=== PATIENT | female | born 1955 | race Hispanic/Latino ===

== ENCOUNTER 2019-01-12 11:22 | Emergency (ER) | payer MEDICARE, MEDICAID ==
[2019-01-12 11:30] VITALS: BMI 46.5
--- NOTE | 2019-01-12 12:32 | ED PDOC ---
HPI: Wound Care - HPI Time Seen by Provider: 01/12/19 12:24 Chief Complaint (Nursing): Wound Check History Per: Patient Onset/Duration Of Symptoms: Days (5) Current Symptoms Are (Timing): Still Present Quality Of Symptoms: Swollen, Draining Additional Complaint(s): referred by PMD, pt is s/p craniotomy 1 month ago and has been at rehab since surgery. Staff at rehab have noticed drainage from surgical wound. Pt denies fever or pain. Past Medical History Vital Signs: Last Vital Signs Temp 98.2 F 01/12/19 11:27 Pulse 94 H 01/12/19 11:27 Resp 19 01/12/19 11:27 BP 120/82 01/12/19 11:27 Pulse Ox 96 01/12/19 11:27 - Medical History PMH: Denies: Depression, Chronic Kidney Disease - Surgical History Other surgeries: s/p craniotomy - Family History Family History: States: Unknown Family Hx - Home Medications Home Medications: Ambulatory Orders Medication Instructions Recorded Spironolactone 75 mg PO BID 06/30/12 Lansoprazole [Prevacid] 30 mg PO DAILY #14 ecc 04/30/14 Morphine Sulfate [Ms Contin] 30 mg PO BID 04/30/14 Oxycodone Hydrochloride [Oxycodone] 10 mg PO Q6 04/30/14 - Allergies Allergies/Adverse Reactions: Allergies Allergy/AdvReac Type Severity Reaction Status Date / Time No Known Allergies Allergy Verified 06/30/12 07:52 Review of Systems ROS Statement: Except As Marked, All Systems Reviewed And Found Negative Constitutional: Negative for: Fever, Chills Physical Exam - Physical Exam Head Exam: Negative for: NORMAL INSPECTION (Scalp occipitoparietal area. Surgical wound appears to be intact with some crusting along border of wound. Noerythema, swelling or drainage noted.) Skin: Positive for: Normal Color, Warm, DRY - ECG O2 Sat by Pulse Oximetry: 96 Disposition - Clinical Impression Clinical Impression: Encounter for postoperative wound check - Patient ED Disposition Is Patient to be Admitted: No - Disposition Referrals: [facility] [Outside] Disposition: Routine/Home Disposition Time: 13:08 Condition: FAIR Instructions: Surgical Wound (DC) Forms: [employer] ([place])
[2019-01-12 13:19] VITALS: BP 122/76; PULSE 72; RESP 17; TEMP 97.9; O2SAT 98
== END 2019-01-12 13:17 | disposition home or self-care (01) ==
LOC: H.ER 11:22
DX: Z98.890 Other specified postprocedural states (principal)

== ENCOUNTER 2019-01-22 19:54 | Inpatient (IN) | payer MEDICARE, MEDICAID ==
[2019-01-22 19:54] VITALS: BMI 46.5
[2019-01-22] MEDS ORDERED: Piperacillin/Tazobact 3.375 GM in Sodium Chloride 0.9% 100 ML IV STA (21:15)
[2019-01-22] MEDS ORDERED: Vancomycin 1 GM in Sodium Chloride 0.9% 100 ML IVPB STA (21:15)
[2019-01-22] MEDS ORDERED: Piperacillin/Tazobact 3.375 gm Inj IVPB ONE (21:21)
[2019-01-22 21:50] LABS: PROTHROMBIN TIME 11.7 Seconds (9.8-13.1)
[2019-01-22 21:53] LABS: PARTIAL THROMBOPLASTIN TIME 32.4 Seconds (25.6-37.1)
[2019-01-22 21:55] LABS: ALB/GLOB RATIO 1.2 (1.0-2.1); ALBUMIN 4.1 g/dL (3.5-5.0); BLOOD UREA NITROGEN 15 mg/dl (7-17); CALCIUM 9.4 mg/dL (8.4-10.2); GFR NON-AFRICAN AMERICAN > 60
[2019-01-22 21:56] LABS: ALT/SGPT 19 U/L (9-52); AST/SGOT 29 U/L (14-36); BASO % 0.4 % (0.0-2.0); EOS # 0.1 K/uL (0.0-0.7); EOS % 1.1 % (0.0-4.0); HEMOGLOBIN 12.6 g/dL (12.0-16.0); LYMPH # 3.1 K/uL (1.0-4.3); LYMPH % 27.6 % (20.0-40.0); MEAN CELL VOLUME 93.1 fl (81.0-99.0); MEAN CORPUSCULAR HEMOGLOBIN 30.1 pg (27.0-31.0); MEAN CORPUSCULAR HGB CONC 32.3 g/dL (33.0-37.0); MEAN PLATELET VOLUME 8.2 fl (7.2-11.7); MONO # 0.6 K/uL (0.0-0.8); MONO % 5.4 % (0.0-10.0); NEUT # 7.5 K/uL (1.8-7.0); NEUT % 65.5 % (50.0-75.0); NRBC % 0.1 % (0.0-0.0); RBC 4.18 Mil/uL (3.80-5.20); RED CELL DISTRIBUTION WIDTH 17.1 % (11.5-14.5); WHITE BLOOD COUNT 11.4 K/uL (4.8-10.8)
--- NOTE | 2019-01-22 22:00 | ED PDOC ---
HPI: Wound Care - HPI Time Seen by Provider: 01/22/19 20:46 Chief Complaint (Nursing): Wound Check Chief Complaint (Provider): Wound Check History Per: Patient History Of Present Illness: 63 year old female with a history of a brain hemangioma presents to the ED for post op wound infection. Patients hemangioma was resected and remove [address] Lance at [facility]. Since then, patient has been at the rehab facility at [facility]. A week ago she developed some drainage from the craniotomy and was started on Keflex. Wound had improved but over the course of the past two days, it has developed purulent drainage. Today, her physiotherapist came to her home and noticed copious drainage from craniotomy. Physiotherapist called Dr. Lance who advised patient to come to the ED for workup, admission, IV antibiotics and OR washout of the wound. Patient denies pain to the site or associated fever or chills. PMD: Iam Harrell MD Exam Limitations: no limitations Current Symptoms Are (Timing): Still Present Past Medical History Reviewed: Historical Data, Nursing Documentation, Vital Signs Vital Signs: Last Vital Signs Temp 97.8 F 01/22/19 20:26 Pulse 88 01/22/19 20:26 Resp 17 01/22/19 20:26 BP 153/86 H 01/22/19 20:26 Pulse Ox 98 01/22/19 20:26 Primary Care Provider: Iam Harrell MD - Medical History PMH: Arthritis Denies: Depression, Chronic Kidney Disease Other PMH: brain hemangioma - Surgical History Other surgeries: knee surgery and craniotomy - Family History Family History: States: Unknown Family Hx - Home Medications Home Medications: Ambulatory Orders Medication Instructions Recorded Brexpiprazole [Rexulti] 1 mg PO DAILY 01/22/19 Bupropion HCl [Wellbutrin XL] 300 mg PO DAILY 01/22/19 Gabapentin [Neurontin] 300 mg PO DAILY 01/22/19 Sertraline [Zoloft] 100 mg PO DAILY 01/22/19 levETIRAcetam [Keppra] 500 mg PO BID 01/22/19 - Allergies Allergies/Adverse Reactions: Allergies Allergy/AdvReac Type Severity Reaction Status Date / Time No Known Allergies Allergy Verified 01/22/19 20:32 Review of Systems ROS Statement: Except As Marked, All Systems Reviewed And Found Negative Skin: Positive for: Other (purulent drainage noted to craniotomy ) Physical Exam - Reviewed Nursing Documentation Reviewed: Yes Vital Signs Reviewed: Yes - Physical Exam Appears: Positive for: Non-toxic, No Acute Distress Skin: Positive for: Normal Color, Warm, Dry Eye Exam: Positive for: EOMI, Normal appearance, PERRL Neck: Positive for: Normal Cardiovascular/Chest: Positive for: Regular Rate, Rhythm. Negative for: Murmur Respiratory: Positive for: Normal Breath Sounds. Negative for: Respiratory Distress Gastrointestinal/Abdominal: Positive for: Normal Exam, Soft. Negative for: Ten derness Back: Positive for: Normal Inspection Extremity: Positive for: Normal ROM (upper and lower). Negative for: Pedal Edema, Deformity Neurological/Psych: Positive for: Awake, Alert, Oriented (x3). Negative for: Motor/Sensory Deficits Comments: HEAD: purulent drainage noticed to the craniotomy - Laboratory Results Result Diagrams: 01/22/19 21:41 01/22/19 21:41 Lab Results: PT 11.7 Seconds (9.8-13.1) 01/22/19 21:41 INR 1.0 01/22/19 21:41 APTT 32.4 Seconds (25.6-37.1) 01/22/19 21:41 Total Bilirubin 0.5 mg/dl (0.2-1.3) 01/22/19 21:41 AST 29 U/L (14-36) 01/22/19 21:41 ALT 19 U/L (9-52) 01/22/19 21:41 Alkaline Phosphatase 73 U/L (38-126) 01/22/19 21:41 Total Protein 7.5 G/DL (6.3-8.2) 01/22/19 21:41 Albumin 4.1 g/dL (3.5-5.0) 01/22/19 21:41 Globulin 3.4 gm/dL (2.2-3.9) 01/22/19 21:41 Albumin/Globulin Ratio 1.2 (1.0-2.1) 01/22/19 21:41 - ECG O2 Sat by Pulse Oximetry: 98 (RA) Pulse Ox Interpretation: Normal Medical Decision Making Medical Decision Making: Time: 2112 Impression: 63 year old female status post craniotomy with wound infection Plan: --labs --IV vancomycin --Case discussed with Dr. Lance who asked that patient had a CT with and without contrast. Case also discussed with Dr. Crespo who accepts patient under his service. 2320 CT Head W/O Contrast FINDINGS: BRAIN There has been recent left frontal-parietal neurosurgery. Historically, a benign mass was surgically excised. Along the inner wall of the craniotomy flap, there is demonstration of an approximately 4.2 x 2.3 cm hypodense subdural collection with a surrounding peripheral rim of enhancement following IV contrast administration. Additionally, intracranial gas is seen within this collection along the lateral aspect. These findings are compatible with abscess formation at the operative site. No acute intraparenchymal hemorrhage. No mass lesion. No CT evidence for acute territorial infarct. No midline shift. VENTRICLES: No hydrocephalus. VASCULAR: Extensive atherosclerotic vascular plaquing is noted within the carotid siphons bilaterally. Otherwise, the vascular structures appear to be within normal limits. ORBITS: The orbits are unremarkable. SINUSES AND MASTOIDS: A 1.7 cm mucous retention cyst or polyp is seen in the posterior right maxillary sinus. The remaining paranasal sinuses and mastoid air cells are clear. BONES: No fracture. IMPRESSION: 1. Status post recent left frontal parietal neurosurgical intervention. 2. Findings compatible with formation of a postoperative subdural abscess collection at the operative site beneath the craniotomy flap. 3. Atherosclerotic vascular plaquing is seen within the carotid siphons bilaterally. [address] Black, infectious disease specialist, regarding CT and lab results for patient and agrees with antibiotics. [address] Lance and made him aware of lab results and CT. Scribe Attestation: Documented by Jackie Bauer, acting as a scribe for Lloyd Dumont MD. Provider Scribe Attestation: All medical record entries made by the Scribe were at my direction and personally dictated by me. I have reviewed the chart and agree that the record accurately reflects my personal performance of the history, physical exam, medical decision making, and the department course for this patient. I have also personally directed, reviewed, and agree with the discharge instructions and disposition. Disposition - Clinical Impression Clinical Impression: Post-operative wound abscess - Disposition Disposition Time: 21:15 Condition: FAIR - Pt Status Changed To: Hospital Disposition Of: Inpatient - Admit Certification Admit to Inpatient:: After my assessment, the patient will require hospitalization for at least two midnights. This is because of the severity of symptoms shown, intensity of services needed, and/or the medical risk in this patient being treated as an outpatient.
[2019-01-22] MEDS ORDERED: Sodium Chloride 0.9% 50 ML IV ONE (22:03)
[2019-01-22] MEDS ORDERED: Iohexol 300 100 ML IJ ONE (22:03)
[2019-01-22] MEDS ORDERED: Sodium Chloride 0.9% 1,000 ML IV STA (22:11)
[2019-01-22] MEDS ORDERED: Vancomycin 1 g Inj ONE (23:24)
[2019-01-23] MEDS: Piperacillin/Tazobact 4.5 GM in Sodium Chloride 0.9% 100 ML IVPB SCH ×3 (05:29→21:38)
--- NOTE | 2019-01-23 10:20 | RAD ---
Date of service: 01/22/2019 HISTORY: chest pain COMPARISON: No prior. TECHNIQUE: 1 view obtained. FINDINGS: LUNGS: Mild bibasilar atelectasis. Small bibasilar calcified granulomata PLEURA: No significant pleural effusion identified, no pneumothorax apparent. CARDIOVASCULAR: No aortic atherosclerotic calcification present. Normal cardiac size. No pulmonary vascular congestion. OSSEOUS STRUCTURES: No significant abnormalities. VISUALIZED UPPER ABDOMEN: Normal. OTHER FINDINGS: None. IMPRESSION: Mild bibasilar atelectasis. Small bibasilar calcified granulomata
--- NOTE | 2019-01-23 11:49 | CARD ---
APPROVED REPORT Date of service: 01/22/2019 EKG Measurement Heart [id number] NM [id number] <Conclusion> Normal sinus rhythm Normal ECG
[2019-01-23] MEDS ORDERED: Gadodiamide 287 MG/ML VIAL (15ML) IV ONE (12:08)
--- NOTE | 2019-01-23 16:49 | CT ---
Date of service: 01/22/2019 PROCEDURE: CT HEAD WITH AND WITHOUT CONTRAST HISTORY: Craniotomy wound infection COMPARISON: No prior study available for comparison TECHNIQUE: Axial computed tomography images were obtained through the head/brain with and without intravenous contrast enhancement. Contrast dose: 90 cc Omnipaque 300 Radiation dose: Total exam DLP = 1837.35 mGy-cm. This CT exam was performed using one or more of the following dose reduction techniques: Automated exposure control, adjustment of the mA and/or kV according to patient size, and/or use of iterative reconstruction technique. FINDINGS: Current study reveals a large left superior frontoparietal craniotomy defect. There is an elliptical shaped operative cavitation which appears to be filled with proteinaceous fluid in the posterior frontoparietal region subjacent to the craniotomy that exhibits peripheral rind enhancement. The main portion of the collection measures approximately 4.0 x 2.3 x 3.7 cm in AP, CC and transverse dimensions. There are multiple foci of low attenuation within this cavitation likely representing bubbles of air however some residual hemostatic materials may contribute.. This collection exhibits a thick irregular rind of enhancement. Findings are felt to represent postoperative epidural- extra-axial abscess collection. Suspect postoperative enhancing extra-axial/dural granulation tissue as well. Note that the possibility some surrounding or internal postoperative hemorrhage not completely excluded. Note also some attenuation changes of the inner table posterior superior margin of the calvarial bone flap, just dorsal to the fixation plate superior fixation plate; the possibility of early of cortical destructive changes -osteomyelitis must be considered... This enhancing proteinaceous cavity exerts compressive effects on the subjacent cortex which is inferiorly and medially compressed/displaced. There is also a surrounding rim of white matter vasogenic edema. Overlying sulcal effacement and mild inferior compression/displacement of the left lateral ventricle. There also appears few bubbles of air within between the bone flap and calvarium at the superior border. No obstructive hydrocephalus. OTHER FINDINGS: None. IMPRESSION: There is a elliptical shaped proteinaceous appearing epidural collection subjacent to a left in the left posterior frontoparietal region subjacent to a craniotomy defect with peripheral irregular rind like enhancement dura and what may with scattered bubbles of air or hemostatic materials within the cavitation. Findings felt to represent an epidural abscess. Additionally, there is localized slight attenuation of the cortex of the inner table of the superior margin of the bone flap just dorsal to the small superior fixation plate; rule out while these findings could be postoperative possibility of early cortical destructive changes- osteomyelitis must be considered. Suspect postoperative enhancing extra-axial/dural granulation tissue as well. Note that the possibility some surrounding or internal postoperative hemorrhage not completely excluded. The extra-axial collection exerts mass effect with compression and inferior medial displacement of subjacent posterior frontoparietal sulci. There is also surrounding rim of vasogenic white matter edema. Note that these findings were discussed with Cordelia King 4:40 p.m. with written down and read back verification.
--- NOTE | 2019-01-23 17:45 | MRI ---
Date of service: 01/23/2019 PROCEDURE: MRI BRAIN WITH AND WITHOUT CONTRAST HISTORY: Infected craniotomy site COMPARISON: Comparison made with CT scan of the brain 01/23/2019. TECHNIQUE: Multiplanar, multisequence MR images of the brain were obtained with and without intravenous contrast enhancement. 20 cc of Omniscan contrast material injected for this exam FINDINGS: Large left superior frontoparietal craniotomy defect seen to better advantage on prior CT scan. Redemonstrated is a relatively large elliptical shaped postoperative cavitation which apparently filled with proteinaceous fluid in the posterior frontoparietal region subjacent to the craniotomy that exhibits peripheral rind enhancement. The main portion of the collection measures approximately 4.0 x 2.1 x 3.5 cm in AP, CC and transverse dimensions although there are smaller lobular peripheral areas of enhancement of enhancement areas. There may also be some small foci of postoperative hemorrhagic byproducts.. Scattered bubbles of air and or hemostatic material less well seen on this exam as compared to prior CT scan. Collectively these findings consistent with an epidural abscess. Concomitant peripheral postoperative enhancing extra-axial/dural granulation tissue also felt to be present. This enhancing proteinaceous collection exerts compressive effects on the subjacent cortex which is inferiorly and medially compressed/displaced. There is also a surrounding rim of white matter vasogenic edema. Overlying sulcal effacement and mild inferior compression/displacement of the left lateral ventricle. There also appears few bubbles of air within between the bone flap and calvarium at the superior border. VENTRICLES: Compressive effects left lateral ventricle as above. No obstructive hydrocephalus. CRANIUM: As above. ORBITS: Grossly unremarkable. PARANASAL SINUSES/MASTOIDS: Small to medium-sized mucous retention cyst or focus of polypoid like mucosal thickening right maxillary antrum. VASCULAR SYSTEM: Visualized major vascular flow voids at skull base patent. OTHER FINDINGS: None . IMPRESSION: Postoperative extra-axial collection likely representing epidural abscess which exerts underlying mass effect and compression of the left posterior frontoparietal cortex. There is also subjacent vasogenic white matter edema. See above discussion for additional details and findings. Note that these findings were discussed with Cordelia King at approximately 4:40 p.m. with written down and read back verification.
[2019-01-23] MEDS: BUPROPION HCL 300 MG PO SCH (21:37)
[2019-01-23] MEDS: BREXPIPRAZOLE 1 MG PO SCH (21:43)
[2019-01-24 00:28] LABS: SQUAMOUS EPITHIAL 6 /hpf (0-5); URINE AMORPHOUS SEDIMENT OCC /ul (<OCC); URINE BACTERIA RARE (<OCC); URINE BILIRUBIN NEGATIVE (NEGATIVE); URINE BLOOD SMALL (NEGATIVE); URINE CLARITY SLIGHTY-CLOUDY (Clear); URINE COLOR YELLOW (YELLOW); URINE GLUCOSE (UA) NEG (NEGATIVE); URINE LEUKOCYTE ESTERASE NEG Leu/uL (Negative); URINE PROTEIN NEGATIVE (NEGATIVE); URINE UROBILINOGEN 0.2-1.0 mg/dL (0.2-1.0)
--- NOTE | 2019-01-24 02:01 | CP.PCM.HP ---
History of Present Illness - History of Present Illness History of Present Illness: CC: Craniotomy wound infection HPI: 63 y/o female with a PMH of Craniotomy and brain hemangioma presented to the ED with a post-op wound infection s/p craniotomy at [facility]. As per the pt, she noticed purulent drainage coming from the surgical site (parietal area of the head) while undergoing rehab at [facility]. She was initially treated with Keflex antibiotics, however reported minimal to no improvement over the course of a week. The pt was subsequently sent to the ED for further evaluation. At present, the area is draining slowly. Neurosurgery (Dr. Lance) and infectious disease were added on consults. PMH: Arthritis and Brain hemangioma. PSH: Knee surgery and craniotomy. Allergies: NKDA. Review of Systems: Reviewed and no additional remarkable complaints except tend erness and drainage to craniotomy operative site. Objective Appears: Calm, Non-toxic, No Acute Distress. Head Exam: NORMAL INSPECTION, normocephalic. Eye Exam: Normal eye inspection, EOMI, PERRLA. Respiratory Exam: NORMAL BREATHING PATTERN, breath sounds clear to auscultation. Cardiovascular Exam: +S1, +S2. RRR. GI & Abdominal Exam: Soft, non-tender, non-distended. Musculoskeletal Exam: Full strength to BUE and BLE. Neurological Exam: Alert, awake, oriented x 3. Psychiatric exam: Normal mood. Calm and cooperative. Skin exam: Parietal area is reddened with purulent drainage noted. Assessment/Impression/Plan: 1.) Craniotomy wound infection -Pending wound and blood cultures. Empiric IV antibiotics started (Vanco and Zosyn). -Infectious disease consult input appreciated, wound care and infection control advised. -Brain MRI ordered for today (with and without contrast), neurosurgery added on consult. -Plan is for surgery on Friday01/25/19. -Monitor for neuro and motor deficits. -CXR, EKG, and labs reviewed; at this time, the pt is medically cleared for surg steffanie. Present on Admission - Present on Admission Any Indicators Present on Admission: Yes History Surgical Site Infection Following: Orthopedic Procedures Past Patient History - Tetanus Immunizations Tetanus Immunization: Unknown - Past Medical History & Family History Past Medical History?: Yes - Past Social History Smoking Status: Current Some Days Smoker - CARDIAC Hx Cardiac Disorders: No - PULMONARY Hx Respiratory Disorders: No - NEUROLOGICAL Hx Neurological Disorder: Yes Other/Comment: Brain tumor removed. - HEENT Hx HEENT Problems: No - RENAL Hx Chronic Kidney Disease: No - ENDOCRINE/METABOLIC Hx Endocrine Disorders: No - HEMATOLOGICAL/ONCOLOGICAL Hx Blood Disorders: No Hx AIDS: No Hx Human Immunodeficiency Virus (HIV): No - INTEGUMENTARY Hx Dermatological Problems: No - MUSCULOSKELETAL/RHEUMATOLOGICAL Hx Arthritis: Yes - GASTROINTESTINAL Hx Gastrointestinal Disorders: No - GENITOURINARY/GYNECOLOGICAL Hx Genitourinary Disorders: No - PSYCHIATRIC Hx Depression: No - SURGICAL HISTORY Hx Surgeries: Yes Hx Joint Replacement: Yes (R knee (2018), R hip (2016)) Other/Comment: head Sx (12/11/18) - ANESTHESIA Hx Anesthesia: Yes Hx Anesthesia Reactions: No Hx Malignant Hyperthermia: No Has any member of the family had a problem w/ anesthesia?: No Meds Allergies/Adverse Reactions: Allergies Allergy/AdvReac Type Severity Reaction Status Date / Time No Known Allergies Allergy Verified 01/22/19 20:32 Results - Vital Signs Recent Vital Signs: Last Vital Signs Temp 98.4 F 01/24/19 00:03 Pulse 80 01/24/19 00:03 Resp 20 01/24/19 00:03 BP 136/74 01/24/19 00:03 Pulse Ox 95 01/24/19 00:03 - Labs Result Diagrams: 01/22/19 21:41 01/22/19 21:41 Labs: Laboratory Results - last 24 hr 01/22/19 01/22/19 01/23/19 21:41 21:59 05:15 C-Reactive Protein 28.30 H Urine Color Urine Clarity Urine pH Ur Specific [place] Urine Protein Urine Glucose (UA) Urine Ketones Urine Blood Urine Nitrate Urine Bilirubin Urine Urobilinogen Ur Leukocyte Esterase Urine RBC (Auto) Urine Microscopic WBC Ur Squamous Epith Cells Amorphous Sediment Urine Bacteria Vancomycin Trough Blood Type A NEGATIVE Blood Type Confirm A NEGATIVE Antibody Screen Negative BBK History Checked No verified bt 01/23/19 01/23/19 23:50 23:50 C-Reactive Protein Urine Color Yellow Urine Clarity Slighty-cloudy Urine pH 6.0 Ur Specific [place] 1.023 Urine Protein Negative Urine Glucose (UA) Neg Urine Ketones Negative Urine Blood Small Urine Nitrate Negative Urine Bilirubin Negative Urine Urobilinogen 0.2-1.0 Ur Leukocyte Esterase Neg Urine RBC (Auto) 3 Urine Microscopic WBC 3 Ur Squamous Epith Cells 6 H Amorphous Sediment Occ H Urine Bacteria Rare Vancomycin Trough 14.3 H Blood Type Blood Type Confirm Antibody Screen BBK History Checked Assessment & Plan (1) Post-operative wound abscess Status: Acute (2) Encounter for postoperative wound check Status: Acute
[2019-01-24] MEDS: Piperacillin/Tazobact 4.5 GM in Sodium Chloride 0.9% 100 ML IVPB SCH ×3 (05:04→21:06)
[2019-01-24 07:15] LABS: BASO % 0.2 % (0.0-2.0); EOS # 0.1 K/uL (0.0-0.7); EOS % 1.4 % (0.0-4.0); HEMOGLOBIN 13.1 g/dL (12.0-16.0); LYMPH # 2.9 K/uL (1.0-4.3); LYMPH % 32.3 % (20.0-40.0); MEAN CELL VOLUME 92.6 fl (81.0-99.0); MEAN CORPUSCULAR HEMOGLOBIN 29.7 pg (27.0-31.0); MEAN CORPUSCULAR HGB CONC 32.1 g/dL (33.0-37.0); MEAN PLATELET VOLUME 8.4 fl (7.2-11.7); MONO # 0.6 K/uL (0.0-0.8); MONO % 6.6 % (0.0-10.0); NEUT # 5.3 K/uL (1.8-7.0); NEUT % 59.5 % (50.0-75.0); NRBC % 0.2 % (0.0-0.0); RBC 4.42 Mil/uL (3.80-5.20); RED CELL DISTRIBUTION WIDTH 17.3 % (11.5-14.5); WHITE BLOOD COUNT 8.9 K/uL (4.8-10.8)
[2019-01-24 07:41] LABS: ALB/GLOB RATIO 1.2 (1.0-2.1); ALBUMIN 4.1 g/dL (3.5-5.0); ALT/SGPT 24 U/L (9-52); AST/SGOT 19 U/L (14-36); BLOOD UREA NITROGEN 13 mg/dl (7-17); CALCIUM 9.2 mg/dL (8.4-10.2); GFR NON-AFRICAN AMERICAN > 60
[2019-01-24] MEDS: BREXPIPRAZOLE 1 MG PO SCH (08:40)
[2019-01-24] MEDS: BUPROPION HCL 300 MG PO SCH (08:40)
--- NOTE | 2019-01-24 14:02 | CP.PCM.CON ---
History of Present Illness - History of Present Illness History of Present Illness: 63 year old female with a history of craniotomy for hemangioma presents to the ED for post op wound infection. Patients hemangioma was resected6 weeks ago by Dr. Lance at [facility]. Since then, patient has been at the rehab facility at [facility]. A week ago she developed some drainage from the craniotomy and was started on Keflex. Patient failed out pt rx and was admitted for IV antibiotics and OR washout of the wound. PMH Hemangioma, OA SH N/C NKDA N/C Review of Systems - Review of Systems All systems: reviewed and no additional remarkable complaints except - Constitutional Constitutional: As Per HPI. absent: Chills, Fever - EENT Eyes: absent: As Per HPI, Blind Spots, Blurred Vision, Change in Vision, Decreased Night Vision, Diplopia, Discharge, Dry Eye, Exophthalmos, Floaters, Irritation, Itchy Eyes, Loss of Peripheral Vision, Pain, Photophobia, Requires Corrective Lenses, Sees Flashes, Spots in Vision, Tunnel Vision, Other Visual Disturbances, Loss of Vision, Other Ears: absent: As Per HPI, Decreased Hearing, Ear Discharge, Ear Pain, Tinnitus, Abnormal Hearing, Disequilibrium, Dizziness, Other Nose/Mouth/Throat: absent: As Per HPI, Epistaxis, Nasal Congestion, Nasal Discharge, Nasal Obstruction, Nasal Trauma, Nose Pain, Post Nasal Drip, Sinus Pain, Sinus Pressure, Bleeding Gums, Change in Voice, Dental Pain, Dry Mouth, Dysphagia, Halitosis, Hoarsness, Lip Swelling, Mouth Lesions, Mouth Pain, Odynophagia, Sore Throat, Throat Swelling, Tongue Swelling, Facial Pain, Neck Pain, Neck Mass, Other - Breasts Breasts: absent: As Per HPI, Change in Shape, Mass, Pain, Nipple Discharge, Nipple Inversion, Skin Changes, Swelling, Other - Cardiovascular Cardiovascular: absent: As Per HPI, Acrocyanosis, Chest Pain, Chest Pain at Rest, Chest Pain with Activity, Claudication, Diaphoresis, Dyspnea, Dyspnea on Exertion, Edema, Irregular Heart Rhythm, Pain Radiating to Arm/Neck/Jaw, Leg Edema, Leg Ulcers, Lightheadedness, Orthopnea, Palpitations, Paroxysmal Nocturnal Dyspnea, Pedal Edema, Radiating Pain, Rapid Heart Rate, Slow Heart Rate, Syncope, Other - Respiratory Respiratory: absent: As Per HPI, Cough, Dyspnea, Hemoptysis, Dyspnea on Exertion, Wheezing, Snoring, Stridor, Pain on Inspiration, Chest Congestion, Excessive Mucous Production, Change in Mucous Color, Pain with Coughing, Other - Gastrointestinal Gastrointestinal: absent: As Per HPI, Abdominal Pain, Belching, Bloating, Change in Bowel Habits, Change in Stool Character, Coffee Ground Emesis, Constipation, Cramping, Diarrhea, Dyspepsia, Dysphagia, Early Satiety, Excessive Flatus, Fecal Incontinence, Heartburn, Hematemesis, Hematochezia, Loose Stools, Melena, Nausea, Odynophagia, Temesmus, Vomiting, Other - Genitourinary Genitourinary: absent: As Per HPI, Change in Urinary Stream, Difficulty Urinating, Dysuria, Flank Pain, Hematuria, Pyuria, Nocturia, Urinary Incontinence, Urinary Frequency, Urinary Hesitance, Urinary Urgency, Voiding Freq/Small Amts, Freq UTI, Hx Renal/Bladder Calculi, Hx /Renal Surgery, Bladder Distension, Other - Reproductive: Female Reproductive:Female: absent: As Per HPI, Amenorrhea, Amenorrhea/ Control, Currently Menstual, Cycle <21 Days, Cycle >35 Days, Cycle Variable, Menses 1-7 Days, Menses >/= 8 Days, Menses Variable, Cycle > 4 Weeks Between, No Menses for 6 Months, Heavy Menses, Light Menses, Normal Menses, Spotting Between Cycles, S/P Hysterectomy, Menopausal, Post Menopausal, Premenarche, Abnormal Vaginal Bleeding, Dysmenorrhea, Dyspareunia, Genital Lesions, Genital Pruritis, Pelvic Pain, Prolapse Symptoms, Sexual Dysfunction, Vaginal Discharge, Vaginal Dryness, Vaginal Odor, Vaginal Pruritis, Other - Menstruation Menstruation: absent: As Per HPI, Amenorrhea, Amenorrhea/ Control, Currently Menstual, Cycle <21 Days, Cycle >35 Days, Cycle Variable, Menses 1-7 Days, Menses >/= 8 Days, Menses Variable, Cycle > 4 Weeks Between, No Menses for 6 Months, Heavy Menses, Light Menses, Normal Menses, Spotting Between Cycles, S/P Hysterectomy, Menopausal, Post Menopausal, Premenarche, Abnormal Vaginal Bleeding, Dysmenorrhea, Other - Musculoskeletal Musculoskeletal: absent: As Per HPI, Abnormal Gait, Arthralgias, Atrophy, Back Pain, Deformity, Joint Swelling, Limited Range of Motion, Loss of Height, Muscle Cramps, Muscle Weakness, Myalgias, Neck Pain, Numbness, Radiating Pain into Limb, Stiffness, Tingling, Other - Integumentary Integumentary: As Per HPI - Neurological Neurological: As Per HPI. absent: Convulsions - Psychiatric Psychiatric: absent: As Per HPI, Abnormal Sleep Pattern, Anhedonia, Anxiety, Auditory Hallucinations, Behavioral Changes, Change in Appetite, Change in Libido, Confusion, Depression, Difficulty Concentrating, Hallucinations, Homicidal Ideation, Hopelessness, Irritability, Memory Loss, Mood Swings, Panic Attacks, Paranoia, Suicidal Ideation, Visual Hallucinations, Tactile Hallucinations, Other - Endocrine Endocrine: absent: As Per HPI, Change in Body Appearance, Change in Libido, Cold Intolorance, Deepening of Voice, Excessive Sweating, Fatigue, Flushing, Heat In tolorance, Increase in Ring/Shoe/Hat Size, Palpitations, Polydipsia, Polyphagia, Polyuria, Other - Hematologic/Lymphatic Hematologic: absent: As Per HPI, Easy Bleeding, Easy Bruising, Lymphadenopathy, Other Past Patient History - Tetanus Immunizations Tetanus Immunization: Unknown - Past Medical History & Family History Past Medical History?: Yes - Past Social History Smoking Status: Current Some Days Smoker - CARDIAC Hx Cardiac Disorders: No - PULMONARY Hx Respiratory Disorders: No - NEUROLOGICAL Hx Neurological Disorder: Yes Other/Comment: Brain tumor removed. - HEENT Hx HEENT Problems: No - RENAL Hx Chronic Kidney Disease: No - ENDOCRINE/METABOLIC Hx Endocrine Disorders: No - HEMATOLOGICAL/ONCOLOGICAL Hx Blood Disorders: No Hx AIDS: No Hx Human Immunodeficiency Virus (HIV): No - INTEGUMENTARY Hx Dermatological Problems: No - MUSCULOSKELETAL/RHEUMATOLOGICAL Hx Arthritis: Yes - GASTROINTESTINAL Hx Gastrointestinal Disorders: No - GENITOURINARY/GYNECOLOGICAL Hx Genitourinary Disorders: No - PSYCHIATRIC Hx Depression: No - SURGICAL HISTORY Hx Surgeries: Yes Hx Joint Replacement: Yes (R knee (2018), R hip (2016)) Other/Comment: head Sx (12/11/18) - ANESTHESIA Hx Anesthesia: Yes Hx Anesthesia Reactions: No Hx Malignant Hyperthermia: No Has any member of the family had a problem w/ anesthesia?: No Meds Allergies/Adverse Reactions: Allergies Allergy/AdvReac Type Severity Reaction Status Date / Time No Known Allergies Allergy Verified 01/22/19 20:32 - Medications Medications: Current Medications Acetaminophen (Tylenol 325mg Tab) 650 mg PO Q4 PRN PRN Reason: Fever >100.4 F Acetaminophen (Tylenol 325mg Tab) 650 mg PO Q6 PRN PRN Reason: Pain, Mild (1-3) Last Admin: 01/23/19 16:36 Dose: 650 mg Gabapentin (Neurontin) 300 mg PO DAILY [facility] Last Admin: 01/24/19 08:41 Dose: 300 mg Home Med (Brexpiprazole [Rexulti]) 1 mg PO DAILY [facility] Last Admin: 01/24/19 08:40 Dose: 1 mg Home Med (Bupropion Hcl [Wellbutrin Xl]) 300 mg PO DAILY [facility] Last Admin: 01/24/19 08:40 Dose: 300 mg Piperacillin Sod/Tazobactam (Sod 4.5 gm/ Sodium Chloride) 100 mls @ 100 mls/hr IVPB Q8H [facility]; Protocol Last Admin: 01/24/19 05:04 Dose: 100 mls/hr Vancomycin HCl 1 gm/ Sodium (Chloride) 250 mls @ 166.667 mls/hr IVPB Q8H [facility]; Protocol Last Admin: 01/24/19 01:17 Dose: Not Given Levetiracetam (Keppra) 500 mg PO BID [facility] Last Admin: 01/24/19 08:41 Dose: 500 mg Sertraline HCl (Zoloft) 100 mg PO DAILY [facility] Last Admin: 01/24/19 08:40 Dose: 100 mg Physical Exam - Constitutional Appears: Non-toxic - Head Exam Head Exam: ATRAUMATIC. absent: NORMAL INSPECTION Additional comments: craniotomy incision with scant drainage - Eye Exam Eye Exam: EOMI, PERRL. absent: Scleral icterus - ENT Exam ENT Exam: Mucous Membranes Dry, Normal External Ear Exam - Neck Exam Neck exam: Negative for: Thyromegaly - Respiratory Exam Respiratory Exam: Decreased Breath Sounds, Clear to Auscultation Bilateral, Prolonged Expiratory Phase - Cardiovascular Exam Cardiovascular Exam: REGULAR RHYTHM, +S1, +S2 - GI/Abdominal Exam GI & Abdominal Exam: Diminished Bowel Sounds, Soft. absent: Tenderness - Rectal Exam Rectal Exam: Deferred - Exam Exam: NORMAL INSPECTION - Extremities Exam Extremities exam: Positive for: pedal pulses present. Negative for: calf tenderness, pedal edema, tenderness - Back Exam Back exam: absent: CVA tenderness (L), CVA tenderness (R), paraspinal tenderness - Neurological Exam Neurological exam: Alert, CN II-XII Intact, Oriented x3, Reflexes Normal - Psychiatric Exam Psychiatric exam: Normal Mood - Skin Skin Exam: Dry Results - Vital Signs Recent Vital Signs: Last Vital Signs Temp 97.6 F 01/24/19 08:29 Pulse 77 01/24/19 08:29 Resp 20 01/24/19 08:29 BP 136/69 01/24/19 08:29 Pulse Ox 97 01/24/19 08:29 - Labs Result Diagrams: 01/24/19 06:00 01/24/19 06:00 Labs: Laboratory Results - last 24 hr 01/22/19 01/23/19 01/23/19 21:59 23:50 23:50 WBC RBC Hgb Hct MCV MCH MCHC RDW Plt Count MPV Neut % (Auto) Lymph % (Auto) [place] % (Auto) Eos % (Auto) Baso % (Auto) Neut # (Auto) Lymph # (Auto) [place] # (Auto) Eos # (Auto) Baso # (Auto) Sodium Potassium Chloride Carbon Dioxide Anion Gap BUN Creatinine Est GFR ( Amer) Est GFR (Non-Af Amer) Random Glucose Calcium Total Bilirubin AST ALT Alkaline Phosphatase C-Reactive Protein 28.30 H Total Protein Albumin Globulin Albumin/Globulin Ratio Urine Color Yellow Urine Clarity Slighty-cloudy Urine pH 6.0 Ur Specific Eddy 1.023 Urine Protein Negative Urine Glucose (UA) Neg Urine Ketones Negative Urine Blood Small Urine Nitrate Negative Urine Bilirubin Negative Urine Urobilinogen 0.2-1.0 Ur Leukocyte Esterase Neg Urine RBC (Auto) 3 Urine Microscopic WBC 3 Ur Squamous Epith Cells 6 H Amorphous Sediment Occ H Urine Bacteria Rare Vancomycin Trough 14.3 H 01/24/19 01/24/19 01/24/19 06:00 06:00 06:00 WBC 8.9 RBC 4.42 Hgb 13.1 Hct 41.0 MCV 92.6 MCH 29.7 MCHC 32.1 L RDW 17.3 H Plt Count 339 MPV 8.4 Neut % (Auto) 59.5 Lymph % (Auto) 32.3 Galax % (Auto) 6.6 Eos % (Auto) 1.4 Baso % (Auto) 0.2 Neut # (Auto) 5.3 Lymph # (Auto) 2.9 Galax # (Auto) 0.6 Eos # (Auto) 0.1 Baso # (Auto) 0.0 Sodium 140 Potassium 4.1 Chloride 103 Carbon Dioxide 25 Anion Gap 16 BUN 13 Creatinine 0.7 Est GFR ( Amer) > 60 Est GFR (Non-Af Amer) > 60 Random Glucose 111 H Calcium 9.2 Total Bilirubin 0.6 AST 19 ALT 24 Alkaline Phosphatase 85 C-Reactive Protein Total Protein 7.4 Albumin 4.1 Globulin 3.3 Albumin/Globulin Ratio 1.2 Urine Color Urine Clarity Urine pH Ur Specific Eddy Urine Protein Urine Glucose (UA) Urine Ketones Urine Blood Urine Nitrate Urine Bilirubin Urine Urobilinogen Ur Leukocyte Esterase Urine RBC (Auto) Urine Microscopic WBC Ur Squamous Epith Cells Amorphous Sediment Urine Bacteria Vancomycin Trough 10.1 H Assessment & Plan (1) Brain hemangioma Status: Acute (2) Infected craniotomy plate Status: Acute (3) H/O craniotomy Status: Acute (4) H/O craniotomy Status: Acute (5) Infection of craniotomy plate Status: Acute (6) Post-operative wound abscess Status: Acute - Assessment and Plan (Free Text) Assessment: 63 year old female with a history of craniotomy for hemangioma presents to the ED for post op wound infection. Patients hemangioma was resected6 weeks ago by Dr. Lance at [facility]. Since then, patient has been at the rehab facility at [facility]. A week ago she developed some drainage from the craniotomy and was started on Keflex. Patient failed out pt rx and was admitted for IV antibiotics and OR washout of the wound. wound growing staph and gram negative for OR /washout unclear if bone infected consider imaging/ bone scan may need exterminator IV antibiotics
--- NOTE | 2019-01-24 22:32 | CP.PCM.PN ---
Subjective - Date & Time of Evaluation Date of Evaluation: 01/24/19 Time of Evaluation: 11:00 - Subjective Subjective: Pt seen and assessed at bedside, no acute overnight events noted. Frontoparietal area remains with scant, purulent drainage s/p craniotomy site infection. Pt is for surgery tomorrow with Dr. Lance. Review of Systems: Reviewed and no additional remarkable complaints except tenderness and drainage to craniotomy operative site. Objective Appears: Calm, Non-toxic, No Acute Distress. Head Exam: Normocephalic, craniotomy infected surgical site noted on frontoparietal aspect of the head. Eye Exam: Normal eye inspection, EOMI, PERRLA. Respiratory Exam: NORMAL BREATHING PATTERN, breath sounds clear to auscultation. Cardiovascular Exam: +S1, +S2. RRR. GI & Abdominal Exam: Soft, non-tender, non-distended. Musculoskeletal Exam: Full strength to BUE and BLE. Neurological Exam: Alert, awake, oriented x 3. Psychiatric exam: Normal mood. Calm and cooperative. Skin exam: Parietal area is reddened with purulent drainage noted. 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 -On IV antibiotics (Vanco and Zosyn). -Infectious disease and neurology consult input appreciated. -Monitor for neuro and motor deficits (none at present). -The pt is medically cleared for surgery. For surgery tomorrow Friday01/25/19. NPO past midnight, will start LR IVF. Objective - Vital Signs/Intake and Output Vital Signs (last 24 hours): Temp Pulse Resp BP Pulse Ox 98.6 F 66 20 158/83 H 94 L 01/24/19 16:32 01/24/19 16:32 01/24/19 16:32 01/24/19 16:32 01/24/19 16:32 - Medications Medications: Current Medications Acetaminophen (Tylenol 325mg Tab) 650 mg PO Q4 PRN PRN Reason: Fever >100.4 F Acetaminophen (Tylenol 325mg Tab) 650 mg PO Q6 PRN PRN Reason: Pain, Mild (1-3) Last Admin: 01/23/19 16:36 Dose: 650 mg Gabapentin (Neurontin) 300 mg PO DAILY [facility] Last Admin: 01/24/19 08:41 Dose: 300 mg Home Med (Brexpiprazole [Rexulti]) 1 mg PO DAILY [facility] Last Admin: 01/24/19 08:40 Dose: 1 mg Home Med (Bupropion Hcl [Wellbutrin Xl]) 300 mg PO DAILY [facility] Last Admin: 01/24/19 08:40 Dose: 300 mg Piperacillin Sod/Tazobactam (Sod 4.5 gm/ Sodium Chloride) 100 mls @ 100 mls/hr IVPB Q8H [facility]; Protocol Last Admin: 01/24/19 21:06 Dose: 100 mls/hr Vancomycin HCl 1 gm/ Sodium (Chloride) 250 mls @ 166.667 mls/hr IVPB Q8H [facility]; Protocol Last Admin: 01/24/19 16:13 Dose: 166.667 mls/hr Levetiracetam (Keppra) 500 mg PO BID [facility] Last Admin: 01/24/19 17:13 Dose: 500 mg Loperamide HCl (Imodium) 2 mg PO Q6 PRN PRN Reason: Diarrhea Last Admin: 01/24/19 14:22 Dose: 2 mg Sertraline HCl (Zoloft) 100 mg PO DAILY [facility] Last Admin: 01/24/19 08:40 Dose: 100 mg - Labs Labs: 01/24/19 06:00 01/24/19 06:00 PT 11.7 Seconds (9.8-13.1) 01/22/19 21:41 INR 1.0 01/22/19 21:41 APTT 32.4 Seconds (25.6-37.1) 01/22/19 21:41 Assessment and Plan (1) Post-operative wound abscess Status: Acute (2) Encounter for postoperative wound check Status: Acute
[2019-01-25] MEDS: Lactated Ringer's 1,000 ML IV SCH ×2 (00:32→21:40)
[2019-01-25] MEDS: Piperacillin/Tazobact 4.5 GM in Sodium Chloride 0.9% 100 ML IVPB SCH ×3 (05:38→21:44)
--- NOTE | 2019-01-25 07:29 | CP.PCM.CON ---
History of Present Illness - History of Present Illness History of Present Illness: Neurosurgical consult: Dr. Lance Patient is a 63 y/o female c/o cranial wound drainage. Patient is s/p craniotomy for meningioma on 12/11/18. The patient had mild postop wound drainage while in rehab at [facility] following her procedure. Over the past few days, the purulent drainage had significantly increased prompting her admission. She denies any pain, numbness or tingling. She currently denies CP/SOB/N/V/D/fever/dysuria/melena. PMH: denies PSH: R ASHLEY, R TKA, R revision TKA x 2 meds: as per med rec NKDA SH: tobacco 1/2 ppd > 40 yrs, denies ETOH/drug use Review of Systems - Review of Systems All systems: reviewed and no additional remarkable complaints except Review of Systems: as per HPI Past Patient History - Tetanus Immunizations Tetanus Immunization: Unknown - Past Medical History & Family History Past Medical History?: Yes Past Family History: Reviewed and not pertinent - Past Social History Smoking Status: Current Some Days Smoker - CARDIAC Hx Cardiac Disorders: No - PULMONARY Hx Respiratory Disorders: No - NEUROLOGICAL Hx Neurological Disorder: Yes Other/Comment: Brain tumor removed. - HEENT Hx HEENT Problems: No - RENAL Hx Chronic Kidney Disease: No - ENDOCRINE/METABOLIC Hx Endocrine Disorders: No - HEMATOLOGICAL/ONCOLOGICAL Hx Blood Disorders: No Hx AIDS: No Hx Human Immunodeficiency Virus (HIV): No - INTEGUMENTARY Hx Dermatological Problems: No - MUSCULOSKELETAL/RHEUMATOLOGICAL Hx Arthritis: Yes - GASTROINTESTINAL Hx Gastrointestinal Disorders: No - GENITOURINARY/GYNECOLOGICAL Hx Genitourinary Disorders: No - PSYCHIATRIC Hx Depression: No - SURGICAL HISTORY Hx Surgeries: Yes Hx Joint Replacement: Yes (R knee (2018), R hip (2016)) Other/Comment: head Sx (12/11/18) - ANESTHESIA Hx Anesthesia: Yes Hx Anesthesia Reactions: No Hx Malignant Hyperthermia: No Has any member of the family had a problem w/ anesthesia?: No Meds Allergies/Adverse Reactions: Allergies Allergy/AdvReac Type Severity Reaction Status Date / Time No Known Allergies Allergy Verified 01/22/19 20:32 - Medications Medications: Current Medications Acetaminophen (Tylenol 325mg Tab) 650 mg PO Q4 PRN PRN Reason: Fever >100.4 F Acetaminophen (Tylenol 325mg Tab) 650 mg PO Q6 PRN PRN Reason: Pain, Mild (1-3) Last Admin: 01/23/19 16:36 Dose: 650 mg Gabapentin (Neurontin) 300 mg PO DAILY [facility] Last Admin: 01/24/19 08:41 Dose: 300 mg Home Med (Brexpiprazole [Rexulti]) 1 mg PO DAILY [facility] Last Admin: 01/24/19 08:40 Dose: 1 mg Home Med (Bupropion Hcl [Wellbutrin Xl]) 300 mg PO DAILY [facility] Last Admin: 01/24/19 08:40 Dose: 300 mg Piperacillin Sod/Tazobactam (Sod 4.5 gm/ Sodium Chloride) 100 mls @ 100 mls/hr IVPB Q8H [facility]; Protocol Last Admin: 01/25/19 05:38 Dose: 100 mls/hr Vancomycin HCl 1 gm/ Sodium (Chloride) 250 mls @ 166.667 mls/hr IVPB Q8H [facility]; Protocol Last Admin: 01/25/19 00:32 Dose: 166.667 mls/hr Lactated Ringer's (Lactated Ringer's) 1,000 mls @ 100 mls/hr IV .Q10H [facility] Last Admin: 01/25/19 00:32 Dose: 100 mls/hr Levetiracetam (Keppra) 500 mg PO BID [facility] Last Admin: 01/24/19 17:13 Dose: 500 mg Loperamide HCl (Imodium) 2 mg PO Q6 PRN PRN Reason: Diarrhea Last Admin: 01/24/19 14:22 Dose: 2 mg Morphine Sulfate (Morphine) 1 mg IVP Q6 PRN PRN Reason: Pain, moderate (4-7) Morphine Sulfate (Morphine) 2 mg IVP Q6 PRN PRN Reason: Pain, severe (8-10) Sertraline HCl (Zoloft) 100 mg PO DAILY [facility] Last Admin: 01/24/19 08:40 Dose: 100 mg Physical Exam - Constitutional Appears: Well, No Acute Distress - Head Exam Head Exam: NORMOCEPHALIC Additional comments: L parietal wound with mild purulent drainage from mid wound, rest of the wound intact no tenderness no erythema/masses - Eye Exam Eye Exam: EOMI, Normal appearance - ENT Exam ENT Exam: Mucous Membranes Moist - Respiratory Exam Respiratory Exam: NORMAL BREATHING PATTERN - Extremities Exam Extremities exam: Positive for: normal inspection Additional comments: R ASHLEY incision well healed R TKA incision well healed - Neurological Exam Neurological exam: Alert, CN II-XII Intact, Oriented x3 - Psychiatric Exam Psychiatric exam: Normal Affect, Normal Mood - Skin Skin Exam: Normal Color, Warm Results - Vital Signs Recent Vital Signs: Last Vital Signs Temp 98 F 01/25/19 00:02 Pulse 69 01/25/19 00:02 Resp 18 01/25/19 00:02 BP 120/67 01/25/19 00:02 Pulse Ox 94 L 01/25/19 00:02 - Labs Result Diagrams: 01/24/19 06:00 01/24/19 06:00 Labs: Laboratory Results - last 24 hr 01/24/19 01/24/19 06:00 06:00 Sodium 140 Potassium 4.1 Chloride 103 Carbon Dioxide 25 Anion Gap 16 BUN 13 Creatinine 0.7 Est GFR ( Amer) > 60 Est GFR (Non-Af Amer) > 60 Random Glucose 111 H Calcium 9.2 Total Bilirubin 0.6 AST 19 ALT 24 Alkaline Phosphatase 85 Total Protein 7.4 Albumin 4.1 Globulin 3.3 Albumin/Globulin Ratio 1.2 Vancomycin Trough 10.1 H - Impressions Impression: Accession No. : [id number] Patient Name / ID : JULIUS KAMARA / [id number] Exam Date : 01/23/2019 12:34:27 ( Approved ) Study Comment : Sex / Age : F / 63Y Creator : Dar Palomino MD Dictator : Dar Palomino MD Art Gallery Director : Manager Recruitment : Dar Palomino MD Approver2 : Report Date : 01/23/2019 17:39:55 My Comment : * Date of service: 01/23/2019 PROCEDURE: MRI BRAIN WITH AND WITHOUT CONTRAST HISTORY: Infected craniotomy site COMPARISON: Comparison made with CT scan of the brain 01/23/2019. TECHNIQUE: Multiplanar, multisequence MR images of the brain were obtained with and without intravenous contrast enhancement. 20 cc of Omniscan contrast material injected for this exam FINDINGS: Large left superior frontoparietal craniotomy defect seen to better advantage on prior CT scan. Redemonstrated is a relatively large elliptical shaped postoperative cavitation which apparently filled with proteinaceous fluid in the posterior frontoparietal region subjacent to the craniotomy that exhibits peripheral rind enhancement. The main portion of the collection measures approximately 4.0 x 2.1 x 3.5 cm in AP, CC and transverse dimensions although there are smaller lobular peripheral areas of enhancement of enhancement areas. There may also be some small foci of postoperative hemorrhagic byproducts.. Scattered bubbles of air and or hemostatic material less well seen on this exam as compared to prior CT scan. Collectively these findings consistent with an epidural abscess. Concomitant peripheral postoperative enhancing extra-axial/dural granulation tissue also felt to be present. This enhancing proteinaceous collection exerts compressive effects on the subjacent cortex which is inferiorly and medially compressed/displaced. There is also a surrounding rim of white matter vasogenic edema. Overlying sulcal effa cement and mild inferior compression/displacement of the left lateral ventricle. There also appears few bubbles of air within between the bone flap and calvarium at the superior border. VENTRICLES: Compressive effects left lateral ventricle as above. No obstructive hydrocephalus. CRANIUM: As above. ORBITS: Grossly unremarkable. PARANASAL SINUSES/MASTOIDS: Small to medium-sized mucous retention cyst or focus of polypoid like mucosal thickening right maxillary antrum. VASCULAR SYSTEM: Visualized major vascular flow voids at skull base patent. OTHER FINDINGS: None . IMPRESSION: Postoperative extra-axial collection likely representing epidural abscess which exerts underlying mass effect and compression of the left posterior frontoparietal cortex. There is also subjacent vasogenic white matter edema. See above discussion for additional details and findings. Note that these findings were discussed with Cordelia King at approximately 4:40 p.m. with written down and read back verification. Accession No. : [id number] Patient Name / ID : JULIUS KAMARA / [id number] Exam Date : 01/22/2019 22:28:42 ( Approved ) Study Comment : Sex / Age : F / 63Y Creator : Dar Palomino MD Dictator : Dar Palomino MD Art Gallery Director : Manager Recruitment : Dar Palomino MD Approver2 : Report Date : 01/23/2019 16:45:48 My Comment : Date of service: 01/22/2019 PROCEDURE: CT HEAD WITH AND WITHOUT CONTRAST HISTORY: Craniotomy wound infection COMPARISON: No prior study available for comparison TECHNIQUE: Axial computed tomography images were obtained through the head/brain with and without intravenous contrast enhancement. Contrast dose: 90 cc Omnipaque 300 Radiation dose: Total exam DLP = 1837.35 mGy-cm. This CT exam was performed using one or more of the following dose reduction techniques: Automated exposure control, adjustment of the mA and/or kV according to patient size, and/or use of iterative reconstruction technique. FINDINGS: Current study reveals a large left superior frontoparietal craniotomy defect. There is an elliptical shaped operative cavitation which appears to be filled with proteinaceous fluid in the posterior frontoparietal region subjacent to the craniotomy that exhibits peripheral rind enhancement. The main portion of the collection measures approximately 4.0 x 2.3 x 3.7 cm in AP, CC and transverse dimensions. There are multiple foci of low attenuation within this cavitation likely representing bubbles of air however some residual hemostatic materials may contribute.. This collection exhibits a thick irregular rind of enhancement. Findings are felt to represent postoperative epidural- extra-axial abscess collection. Suspect postoperative enhancing extra-axial/dural granulation tissue as well. Note that the possibility some surrounding or internal postoperative hemorrhage not completely excluded. Note also some attenuation changes of the inner table posterior superior margin of the calvarial bone flap, just dorsal to the fixation plate superior fixation plate; the possibility of early of cortical destructive changes -osteomyelitis must be considered... This enhancing proteinaceous cavity exerts compressive effects on the subjacent cortex which is inferiorly and medially compressed/displaced. There is also a surrounding rim of white matter vasogenic edema. Overlying sulcal effacement and mild inferior compression/displacement of the left lateral ventricle. There also appears few bubbles of air within between the bone flap and calvarium at the superior border. No obstructive hydrocephalus. OTHER FINDINGS: None. IMPRESSION: There is a elliptical shaped proteinaceous appearing epidural collection subj acent to a left in the left posterior frontoparietal region subjacent to a craniotomy defect with peripheral irregular rind like enhancement dura and what may with scattered bubbles of air or hemostatic materials within the cavitation. Findings felt to represent an epidural abscess. Additionally, there is localized slight attenuation of the cortex of the inner table of the superior margin of the bone flap just dorsal to the small superior fixation plate; rule out while these findings could be postoperative possibility of early cortical destructive changes- osteomyelitis must be considered. Suspect postoperative enhancing extra-axial/dural granulation tissue as well. Note that the possibility some surrounding or internal postoperative hemorrhage not completely excluded. The extra-axial collection exerts mass effect with compression and inferior medial displacement of subjacent posterior frontoparietal sulci. There is also surrounding rim of vasogenic white matter edema. Note that these findings were discussed with 6 [facility] Nurse King 4:40 p.m. with written down and read back verification. Assessment & Plan (1) Post-operative wound abscess Assessment and Plan: - Dr. Lance has seen, examined the patient and reviewed patient's imaging. The plan is to perform re-exploration craniotomy, I&D of abscess and all other indicated procedures. -Risks/benefits/alternatives were explained to the patient who understands and agrees to proceed with procedure listed. -NPO -d/w Dr. Lance who agrees with above Status: Acute - Date & Time Date: 01/25/19 Time: 07:28
[2019-01-25] MEDS ORDERED: Succinylcholine Chloride 20 mg/ml Syr (5 ml) IV ONE (10:00)
[2019-01-25] MEDS ORDERED: Midazolam 2 MG/2 ML VIAL ONE (10:00)
[2019-01-25] MEDS ORDERED: Rocuronium 10 mg/ml (5 ml) ONE (10:00)
[2019-01-25] MEDS ORDERED: Lidocaine 4% (Laryng-O-Jet) Kit MM ONE (10:00)
[2019-01-25] MEDS ORDERED: Bupivacaine HCl 0.5% PF (30 ml) Inj ONE (10:10)
[2019-01-25] MEDS ORDERED: Lidocaine 1% w Epi 1:100,000 Inj ONE (10:10)
[2019-01-25] MEDS ORDERED: Bacitracin Ointment 30 GM TUBE ONE (10:11)
[2019-01-25] MEDS ORDERED: Thrombin Topical 5,000 Int Units Spray Kit ONE (10:11)
[2019-01-25] MEDS ORDERED: Absorbable Gelatin Sponge Size 12-7 ONE (10:11)
[2019-01-25] MEDS ORDERED: Propofol 10 mg/ml Inj (20 ML) ONE (10:16)
[2019-01-25] MEDS ORDERED: ePHEDrine 50 mg/ml Inj ONE (10:37)
[2019-01-25] MEDS ORDERED: APROTININ/FIBRINOGEN(TISSEEL) ONE ×2 (10:40→11:30)
[2019-01-25] MEDS ORDERED: Sodium Chloride 0.9% 1,000 ML IV ONE (10:45)
[2019-01-25] MEDS ORDERED: Vancomycin 1 g Inj IVPB ONE (10:45)
[2019-01-25] MEDS ORDERED: Lidocaine/Epi 1% 1:100000 20 ML IJ ONE (10:45)
[2019-01-25] MEDS ORDERED: Piperacillin/Tazobact 3.375 gm Inj IVPB ONE (10:50)
[2019-01-25] MEDS ORDERED: levETIRAcetam 1,000 MG in Sodium Chloride 0.9% 100 ML IVPB ONE (11:00)
--- NOTE | 2019-01-25 12:05 | PCM.SURG1 ---
Surgeon's Initial Post Op Note - Surgeon's Notes Surgeon: Asher Lance MD Dairy Nutrition Specialist: Eulogio Wilks PA-C Type of Anesthesia: General Endo Anesthesia Administered By: Holger Briones MD Pre-Operative Diagnosis: Epidural versus subdural abscess Operative Findings: see complete operative report Post-Operative Diagnosis: Epidural abscess Operation Performed: Re-exploration craniotomy, irrigation and debridement of abscess, removal of bone flap Specimen/Specimens Removed: granulous tissue, culture swabs x 3 Estimated Blood Loss: EBL {In ML}: 20 Blood Products Given: N/A (bila bag to gravity) Drains Used: Kareem Marie (Bile ) Post-Op Condition: Good Date of Surgery/Procedure: 01/25/19 Time of Surgery/Procedure: 10:45
[2019-01-25] MEDS ORDERED: Dexamethasone 4 mg/1 ml IVP PRN (12:08)
[2019-01-25] MEDS ORDERED: Oxycodone/Acetaminophen 5/325 mg Tab PO PRN (13:49)
[2019-01-25] MEDS: BREXPIPRAZOLE 1 MG PO SCH (16:57)
[2019-01-25] MEDS: BUPROPION HCL 300 MG PO SCH (16:57)
[2019-01-25] MEDS: Oxycodone/Acetaminophen 5/325 mg Tab PO PRN (17:12)
--- NOTE | 2019-01-25 17:39 | CP.PCM.PN ---
Subjective - Date & Time of Evaluation Date of Evaluation: 01/25/19 Time of Evaluation: 10:00 - Subjective Subjective: patient away in OR chart reviewed discussed with house staff plan as ordered follow up postoperatively Objective - Vital Signs/Intake and Output Vital Signs (last 24 hours): Temp Pulse Resp BP Pulse Ox 98.2 F 73 19 116/63 91 L 01/25/19 16:46 01/25/19 16:46 01/25/19 16:46 01/25/19 16:46 01/25/19 16:46 Intake and Output: 01/25/19 01/25/19 06:59 18:59 Intake Total 1150 Balance 1150 - Medications Medications: Current Medications Acetaminophen (Tylenol 325mg Tab) 650 mg PO Q4 PRN PRN Reason: Fever >100.4 F Acetaminophen (Tylenol 325mg Tab) 650 mg PO Q6 PRN PRN Reason: Pain, Mild (1-3) Last Admin: 01/23/19 16:36 Dose: 650 mg Docusate Sodium (Colace) 100 mg PO BID [facility] Gabapentin (Neurontin) 300 mg PO DAILY [facility] Last Admin: 01/25/19 16:58 Dose: 300 mg Home Med (Brexpiprazole [Rexulti]) 1 mg PO DAILY [facility] Last Admin: 01/25/19 16:57 Dose: 1 mg Home Med (Bupropion Hcl [Wellbutrin Xl]) 300 mg PO DAILY [facility] Last Admin: 01/25/19 16:57 Dose: 300 mg Piperacillin Sod/Tazobactam (Sod 4.5 gm/ Sodium Chloride) 100 mls @ 100 mls/hr IVPB Q8H [facility]; Protocol Last Admin: 01/25/19 17:01 Dose: 100 mls/hr Vancomycin HCl 1 gm/ Sodium (Chloride) 250 mls @ 166.667 mls/hr IVPB Q8H [facility]; Protocol Last Admin: 01/25/19 16:59 Dose: 166.667 mls/hr Lactated Ringer's (Lactated Ringer's) 1,000 mls @ 100 mls/hr IV .Q10H [facility] Last Admin: 01/25/19 00:32 Dose: 100 mls/hr Levetiracetam (Keppra) 500 mg PO BID [facility] Last Admin: 01/25/19 16:57 Dose: 500 mg Loperamide HCl (Imodium) 2 mg PO Q6 PRN PRN Reason: Diarrhea Last Admin: 01/24/19 14:22 Dose: 2 mg Morphine Sulfate (Morphine) 1 mg IVP Q6 PRN PRN Reason: Pain, moderate (4-7) Morphine Sulfate (Morphine) 2 mg IVP Q6 PRN PRN Reason: Pain, severe (8-10) Ondansetron HCl (Zofran Inj) 4 mg IVP Q4 PRN PRN Reason: Nausea/Vomiting Oxycodone/Acetaminophen (Percocet 5/325 Mg Tab) 2 tab PO Q4 PRN PRN Reason: Pain, moderate (4-7) Stop: 01/28/19 13:50 Last Admin: 01/25/19 17:12 Dose: 2 tab Oxycodone/Acetaminophen (Percocet 5/325 Mg Tab) 1 tab PO Q4 PRN PRN Reason: Pain, Mild (1-3) Stop: 01/28/19 13:50 Sertraline HCl (Zoloft) 100 mg PO DAILY [facility] Last Admin: 01/25/19 17:00 Dose: 100 mg - Labs Labs: 01/24/19 06:00 01/24/19 06:00 PT 11.7 Seconds (9.8-13.1) 01/22/19 21:41 INR 1.0 01/22/19 21:41 APTT 32.4 Seconds (25.6-37.1) 01/22/19 21:41 Assessment and Plan (1) Post-operative wound abscess Status: Acute (2) H/O craniotomy Status: Acute
--- NOTE | 2019-01-25 21:27 | CP.PCM.PN ---
Subjective - Date & Time of Evaluation Date of Evaluation: 01/25/19 Time of Evaluation: 08:00 - Subjective Subjective: post op stable cultures noted Objective - Vital Signs/Intake and Output Vital Signs (last 24 hours): Temp Pulse Resp BP Pulse Ox 98.5 F 78 20 109/72 93 L 01/25/19 21:00 01/25/19 21:00 01/25/19 21:00 01/25/19 21:00 01/25/19 21:00 Intake and Output: 01/25/19 01/26/19 18:59 06:59 Intake Total 1150 300 Balance 1150 300 - Medications Medications: Current Medications Acetaminophen (Tylenol 325mg Tab) 650 mg PO Q4 PRN PRN Reason: Fever >100.4 F Acetaminophen (Tylenol 325mg Tab) 650 mg PO Q6 PRN PRN Reason: Pain, Mild (1-3) Last Admin: 01/23/19 16:36 Dose: 650 mg Docusate Sodium (Colace) 100 mg PO BID [facility] Gabapentin (Neurontin) 300 mg PO DAILY [facility] Last Admin: 01/25/19 16:58 Dose: 300 mg Home Med (Brexpiprazole [Rexulti]) 1 mg PO DAILY [facility] Last Admin: 01/25/19 16:57 Dose: 1 mg Home Med (Bupropion Hcl [Wellbutrin Xl]) 300 mg PO DAILY [facility] Last Admin: 01/25/19 16:57 Dose: 300 mg Piperacillin Sod/Tazobactam (Sod 4.5 gm/ Sodium Chloride) 100 mls @ 100 mls/hr IVPB Q8H [facility]; Protocol Last Admin: 01/25/19 17:01 Dose: 100 mls/hr Vancomycin HCl 1 gm/ Sodium (Chloride) 250 mls @ 166.667 mls/hr IVPB Q8H [facility]; Protocol Last Admin: 01/25/19 16:59 Dose: 166.667 mls/hr Lactated Ringer's (Lactated Ringer's) 1,000 mls @ 100 mls/hr IV .Q10H [facility] Last Admin: 01/25/19 00:32 Dose: 100 mls/hr Levetiracetam (Keppra) 500 mg PO BID [facility] Last Admin: 01/25/19 16:57 Dose: 500 mg Loperamide HCl (Imodium) 2 mg PO Q6 PRN PRN Reason: Diarrhea Last Admin: 01/24/19 14:22 Dose: 2 mg Morphine Sulfate (Morphine) 1 mg IVP Q6 PRN PRN Reason: Pain, moderate (4-7) Morphine Sulfate (Morphine) 2 mg IVP Q6 PRN PRN Reason: Pain, severe (8-10) Ondansetron HCl (Zofran Inj) 4 mg IVP Q4 PRN PRN Reason: Nausea/Vomiting Oxycodone/Acetaminophen (Percocet 5/325 Mg Tab) 2 tab PO Q4 PRN PRN Reason: Pain, moderate (4-7) Stop: 01/28/19 13:50 Last Admin: 01/25/19 17:12 Dose: 2 tab Oxycodone/Acetaminophen (Percocet 5/325 Mg Tab) 1 tab PO Q4 PRN PRN Reason: Pain, Mild (1-3) Stop: 01/28/19 13:50 Sertraline HCl (Zoloft) 100 mg PO DAILY [facility] Last Admin: 01/25/19 17:00 Dose: 100 mg - Labs Labs: 01/24/19 06:00 01/24/19 06:00 PT 11.7 Seconds (9.8-13.1) 01/22/19 21:41 INR 1.0 01/22/19 21:41 APTT 32.4 Seconds (25.6-37.1) 01/22/19 21:41 - Constitutional Appears: Non-toxic - Head Exam Head Exam: absent: NORMOCEPHALIC - Eye Exam Eye Exam: absent: Scleral icterus Pupil Exam: NORMAL ACCOMODATION, PERRL - ENT Exam ENT Exam: Mucous Membranes Moist, Normal Exam - Neck Exam Neck Exam: Full ROM, Normal Inspection. absent: Lymphadenopathy - Respiratory Exam Respiratory Exam: Clear to Ausculation Bilateral, NORMAL BREATHING PATTERN - Cardiovascular Exam Cardiovascular Exam: REGULAR RHYTHM, +S1, +S2. absent: Murmur - GI/Abdominal Exam GI & Abdominal Exam: Soft, Normal Bowel Sounds. absent: Tenderness - Rectal Exam Rectal Exam: Deferred - Extremities Exam Extremities Exam: Full ROM, Normal Capillary Refill, Normal Inspection. absent: Joint Swelling, Pedal Edema - Back Exam Back Exam: NORMAL INSPECTION - Neurological Exam Neurological Exam: Alert, Awake, CN II-XII Intact, Normal Gait, Oriented x3 - Psychiatric Exam Psychiatric exam: Normal Affect, Normal Mood - Skin Skin Exam: Dry, Intact, Normal Color, Warm Assessment and Plan (1) Brain hemangioma Status: Acute (2) Infected craniotomy plate Status: Acute (3) H/O craniotomy Status: Acute (4) H/O craniotomy Status: Acute (5) Infection of craniotomy plate Status: Acute (6) Post-operative wound abscess Status: Acute - Assessment and Plan (Free Text) Assessment: IV antibiotics in progress await OR cultures including bone cultures
--- NOTE | 2019-01-25 21:55 | PN ---
DATE: 01/25/2019 CRITICAL CARE PROGRESS NOTE LOCATION: The patient is in ICU, bed 422. TIME SPENT: 35 minutes. SUBJECTIVE: The patient is seen and evaluated at the bedside. Past medical, surgical, social, and family history reviewed. A 63-year-old female, status post right total hip replacement, right total knee replacement, and status post right knee revision x2. Noted to have weakness of her right hand. Followup neuro evaluation with a CAT scan showed meningioma involving the frontoparietal region. The patient subsequently underwent craniotomy and removal of the meningioma. Postop, the patient was noted to have purulent drainage from the incision site. Evaluated by Neurosurgery consult and underwent incision and drainage under general anesthesia. Estimated blood loss minimal. Extubated postop. Admitted to ICU for hemodynamic monitoring. MEDICATIONS: The patient's medications at home include Rexulti 1 mg p.o. daily, Wellbutrin XL 300 mg p.o. daily, Neurontin 300 mg p.o. daily, Keppra 500 mg p.o. twice daily, and sertraline 100 mg p.o. daily. ALLERGIES: NONE DOCUMENTED. SOCIAL HISTORY: Chronic active smoker. Social EtOH. PHYSICAL EXAMINATION: GENERAL: Elderly female. Alert, awake, and oriented to name, place and time. VITAL SIGNS: Temperature 97.1, heart rate 71, blood pressure 126/75, respiratory rate 18, and oxygen saturation 97% on room air. Intake and output: Intake 900, output to be documented. Weight 299 pounds. HEAD, EYES, EARS, NOSE AND THROAT: The wound on the left frontoparietal region with a mesh and dressing, to be replaced. Pupils are reactive. Conjunctivae pink. Sclerae are white. NECK: Supple. Trachea central. CHEST: Bilateral breath sounds. Clear to auscultation. HEART: Rhythm regular. S1 and S2 normal intensity. No S3 or S4 gallop. No audible murmur. ABDOMEN: Bowel sounds are present. Soft. Liver and spleen not palpable. Bladder not distended. EXTREMITIES: Scar from the previous surgery. NEUROLOGIC: Nonfocal. CURRENT MEDICATIONS: Tylenol 650 mg every 4 hours p.r.n., Colace 100 mg p.o. twice daily, Neurontin 300 mg daily, levetiracetam (Keppra) 5 mg twice daily, Ringer's lactate at 100 mL per hour, Neurontin 300 mg p.o. daily, and Wellbutrin 300 mg p.o. daily. LABORATORY DATA: WBC 8.9, hemoglobin 13.1, hematocrit 41, and platelet count 339, neutrophils 59.5 and lymphocytes 32.3. SMA-7: Sodium 140, potassium 4.1, chloride of 103, CO2 of 25, blood urea nitrogen 13, creatinine 0.7, and random glucose 111. Lactic acid 3.2. Calcium 9.2. Total bilirubin 0.6, AST 19, ALT 24, and alkaline phosphatase 85. C-reactive protein 28.3, total protein 7.4 and albumin 4.1. IMPRESSION AND PLAN: Epidural abscess, status post craniotomy, incision and drainage with wound packed with mesh and dressing, drainage is positive for Escherichia coli and Staphylococcus epidermidis, on vancomycin 1 g intravenous every 8 hours, Zosyn 4.5 g intravenous every 8 hours, and Keppra 500 mg by mouth twice daily. History of neuropathy, on Neurontin 300 mg by mouth daily. Continue Ringer's lactate. Closely monitor for hemodynamic stability. Continue analgesics as needed for the pain. Hold heparin prophylaxis. We will resume once cleared by Neurosurgery. Jignesh Penny MD
[2019-01-26 05:02] LABS: HEMOGLOBIN 11.9 g/dL (12.0-16.0); MEAN CELL VOLUME 93.2 fl (81.0-99.0); MEAN CORPUSCULAR HEMOGLOBIN 30.1 pg (27.0-31.0); MEAN CORPUSCULAR HGB CONC 32.3 g/dL (33.0-37.0); RBC 3.95 Mil/uL (3.80-5.20); RED CELL DISTRIBUTION WIDTH 17.3 % (11.5-14.5); WHITE BLOOD COUNT 10.6 K/uL (4.8-10.8)
[2019-01-26 05:12] LABS: BLOOD UREA NITROGEN 11 mg/dl (7-17); CALCIUM 8.7 mg/dL (8.4-10.2); GFR NON-AFRICAN AMERICAN > 60
[2019-01-26] MEDS: Piperacillin/Tazobact 4.5 GM in Sodium Chloride 0.9% 100 ML IVPB SCH ×3 (05:33→22:58)
--- NOTE | 2019-01-26 07:27 | OP ---
PROCEDURE DATE: 01/25/2019 PREOPERATIVE DIAGNOSIS: Subdural abscess. POSTOPERATIVE DIAGNOSIS: Subdural abscess. PROCEDURE: Re-exploration of craniotomy, removal of bone flap and drainage of subdural abscess and debridement of the wound and primary closure. SURGEON: Asher Lance MD [employer] SUPERVISOR: JOHNNIE Tucker.physician assistant professor of history who stayed throughout the course and helped me perform surgery DESCRIPTION OF PROCEDURE: The patient was brought to the operating room, anesthetized with general endotracheal anesthesia, and placed in a supine position. The head was placed on a doughnut. After prepping and draping the area, skin has been incised. Bleeding skin has been controlled with bipolar tool honing machine set up operator. Cultures have been sent from subcutaneous tissue. At this point, the debridement of granulation tissues has been obtained and the bone flap has been removed and dura has been opened. There was subdural pus noted that has been drained. A thorough irrigation has been achieved and the necrotic ___brain__ noted. This is as a result of the previous surgery. There was no abscess in the cerebral hemisphere. Once the subdural empyema has been evacuated, the part of the dura that was also looking unhealthy has been resected. Dural substitute has been used in order to cover that. After that drain has been placed, Kareem-Marie, separate stab incision next to the skin incision. subcutaneous tissue closed with 3-0 Vicryl, skin had been using 2-0 silk. The patient tolerated the procedure and after procedure was mobilized to the recovery room in stabilized condition. Asher Lance MD ALICJA
[2019-01-26] MEDS: BREXPIPRAZOLE 1 MG PO SCH (09:04)
[2019-01-26] MEDS: BUPROPION HCL 300 MG PO SCH (09:04)
[2019-01-26] MEDS: Oxycodone/Acetaminophen 5/325 mg Tab PO PRN (09:15)
--- NOTE | 2019-01-26 09:25 | CP.PCM.PN ---
Subjective - Date & Time of Evaluation Date of Evaluation: 01/26/19 Time of Evaluation: 07:30 - Subjective Subjective: Patient seen and examined at bedside. Pain moderate this AM. No acute events overnight. Denies any CP/SOB/dizziness/fever. Objective - Vital Signs/Intake and Output Vital Signs (last 24 hours): Temp Pulse Resp BP Pulse Ox 98.5 F 78 11 L 136/69 95 01/26/19 08:00 01/26/19 08:00 01/26/19 08:00 01/26/19 08:00 01/26/19 08:00 Intake and Output: 01/26/19 01/26/19 06:59 18:59 Intake Total 1400 100 Output Total 700 Balance 700 100 - Medications Medications: Current Medications Acetaminophen (Tylenol 325mg Tab) 650 mg PO Q4 PRN PRN Reason: Fever >100.4 F Acetaminophen (Tylenol 325mg Tab) 650 mg PO Q6 PRN PRN Reason: Pain, Mild (1-3) Last Admin: 01/23/19 16:36 Dose: 650 mg Docusate Sodium (Colace) 100 mg PO BID [facility] Last Admin: 01/26/19 09:05 Dose: Not Given Gabapentin (Neurontin) 300 mg PO DAILY [facility] Last Admin: 01/26/19 09:06 Dose: 300 mg Home Med (Brexpiprazole [Rexulti]) 1 mg PO DAILY [facility] Last Admin: 01/26/19 09:04 Dose: 1 mg Home Med (Bupropion Hcl [Wellbutrin Xl]) 300 mg PO DAILY [facility] Last Admin: 01/26/19 09:04 Dose: 300 mg Piperacillin Sod/Tazobactam (Sod 4.5 gm/ Sodium Chloride) 100 mls @ 100 mls/hr IVPB Q8H [facility]; Protocol Last Admin: 01/26/19 05:33 Dose: 100 mls/hr Vancomycin HCl 1 gm/ Sodium (Chloride) 250 mls @ 166.667 mls/hr IVPB Q8H [facility]; Protocol Last Admin: 01/26/19 09:06 Dose: 166.667 mls/hr Lactated Ringer's (Lactated Ringer's) 1,000 mls @ 100 mls/hr IV .Q10H [facility] Last Admin: 01/25/19 21:40 Dose: 100 mls/hr Levetiracetam (Keppra) 500 mg PO BID [facility] Last Admin: 01/26/19 09:05 Dose: 500 mg Loperamide HCl (Imodium) 2 mg PO Q6 PRN PRN Reason: Diarrhea Last Admin: 01/24/19 14:22 Dose: 2 mg Morphine Sulfate (Morphine) 1 mg IVP Q6 PRN PRN Reason: Pain, moderate (4-7) Last Admin: 01/26/19 00:13 Dose: 1 mg Morphine Sulfate (Morphine) 2 mg IVP Q6 PRN PRN Reason: Pain, severe (8-10) Last Admin: 01/26/19 05:32 Dose: 2 mg Ondansetron HCl (Zofran Inj) 4 mg IVP Q4 PRN PRN Reason: Nausea/Vomiting Oxycodone/Acetaminophen (Percocet 5/325 Mg Tab) 2 tab PO Q4 PRN PRN Reason: Pain, moderate (4-7) Stop: 01/28/19 13:50 Last Admin: 01/26/19 09:15 Dose: 2 tab Oxycodone/Acetaminophen (Percocet 5/325 Mg Tab) 1 tab PO Q4 PRN PRN Reason: Pain, Mild (1-3) Stop: 01/28/19 13:50 Sertraline HCl (Zoloft) 100 mg PO DAILY [facility] Last Admin: 01/26/19 09:07 Dose: 100 mg - Labs Labs: 01/26/19 04:17 01/26/19 04:17 PT 11.7 Seconds (9.8-13.1) 01/22/19 21:41 INR 1.0 01/22/19 21:41 APTT 32.4 Seconds (25.6-37.1) 01/22/19 21:41 - Head Exam Additional comments: Dressings intact Incision CDI with silk suture drain intact with mild serosang drainage mild periwound swelling - Neurological Exam Neurological Exam: Alert, Awake, Normal Gait, Oriented x3 Assessment and Plan (1) Post-operative wound abscess Assessment & Plan: POD#1 s/p re-exploration craniotomy, I&D of abscess -Maintain drain, monitor output -dressings changed -Neuro checks -pain control -PT/OT -stable for transfer out of ICU -d/w Dr. Lance who agrees with above Status: Acute
[2019-01-26] MEDS: Lactated Ringer's 1,000 ML IV SCH (10:59)
--- NOTE | 2019-01-26 12:03 | CT ---
Date of service: 01/26/2019 PROCEDURE: CT HEAD WITHOUT CONTRAST. HISTORY: s/p craniotomy COMPARISON: 01/22/2019. TECHNIQUE: Axial computed tomography images were obtained through the head/brain without intravenous contrast. Radiation dose: Total exam DLP = 925.2 mGy-cm. This CT exam was performed using one or more of the following dose reduction techniques: Automated exposure control, adjustment of the mA and/or kV according to patient size, and/or use of iterative reconstruction technique. FINDINGS: HEMORRHAGE: No intracranial hemorrhage. BRAIN: There is extensive vasogenic edema in the left high parietal lobe. There is no mass effect, midline shift or herniation. VENTRICLES: The ventricles are normal in size, shape and configuration. CALVARIUM: Interval left parietal craniectomy. There is overlying extracranial soft tissue swelling, edema and foci of air in keeping with postoperative changes. A left parietal surgical drain terminates in the high parietal extra-axial space. PARANASAL SINUSES: There is a retention cyst/polyp in the right maxillary sinus. The remaining included paranasal sinuses are predominantly clear. MASTOID AIR CELLS: Predominantly clear. OTHER FINDINGS: None. IMPRESSION: 1. Interval left parietal craniectomy with expected postoperative changes in the extracranial soft tissues. A left parietal surgical drain terminates in the high parietal extra-axial space. 2. Extensive vasogenic edema in the left parietal lobe without evidence for mass effect or midline shift. Please note evaluation of any residual pathology is limited on noncontrast CT examination. If clinically indicated, correlation with MRI of the brain without and with intravenous contrast may be performed.
--- NOTE | 2019-01-26 15:09 | PN ---
DATE: 01/26/2019 LOCATION: The patient in ICU bed 422. TIME SPENT: 35 minutes. The patient is seen, evaluated at the bedside. Past medical, surgical, social and family history reviewed. SUBJECTIVE: A 63-year-old female with moderate obesity, status post right total hip replacement, right total knee replacement, status post right knee revision x2, noted to have weakness of her right hand secondary to meningioma involving the frontoparietal region, status post craniotomy and removal of meningioma. Postop course noted to have purulent discharge and nonhealing of the wound, treated with Keflex, not improved, now status post incision and drainage of the craniotomy and removal of part of the calvaria. Overnight, afebrile and normotensive. Telemetry sinus rhythm. This morning complaining of [id number] pain at the site of incision. No diffuse headache. No seizure activity. Appetite fair. Complaining of tiredness. No abdominal discomfort. MEDICATIONS: Include Tylenol 650 every 4 hours p.r.n., Colace 100 mg b.i.d., Neurontin 300 mg p.o. daily, Rexulti 1 mg daily, Wellbutrin XL 300 mg daily, Keppra 500 mg twice daily, sertraline 100 mg daily, Ringer's lactate at 100 mL/hour, Percocet 5/325 mg 2 tablets every 4 hours p.r.n. for moderate pain, Zosyn 4.5 g IV every 8 hours, vancomycin 1 g IV every 8 hours. LABORATORY DATA: WBC 10.6, hemoglobin 11.9, hematocrit 36.8, platelet count of 295. PT 11.7, INR 1, PTT 32.4. SMA-7: Sodium 137, potassium 4.1, chloride 102, CO2 of 27, blood urea nitrogen 11, creatinine 0.8, random glucose 115, calcium 8.7. C-reactive protein 28.3 and albumin 4.1. Urinalysis; rbc 3 and wbc 3. Vancomycin trough level 10.1. Microbiology, wound culture positive for E. coli, Staphylococcus epidermidis. Blood culture no growth. Wound culture report pending. IMPRESSION: Epidural abscess, status post craniotomy. Incision and drainage with wound packed with mesh and dressing. Drainage culture positive for Escherichia coli and Staphylococcus epidermidis, on vancomycin and Zosyn. History of seizure, on Keppra. Status post craniotomy for meningioma. Continue IV fluids. Diet as tolerated. Analgesics as needed for the pain. Hold heparin prophylaxis. Resume once cleared by Neurosurgery. Seen by Neurosurgery consult. Recommend transfer out of ICU. We will transfer to telemetry floor. Jignesh Penny MD
[2019-01-27] MEDS: Piperacillin/Tazobact 4.5 GM in Sodium Chloride 0.9% 100 ML IVPB SCH ×3 (05:12→21:40)
[2019-01-27 05:52] LABS: HEMOGLOBIN 12.2 g/dL (12.0-16.0); MEAN CELL VOLUME 93.4 fl (81.0-99.0); MEAN CORPUSCULAR HEMOGLOBIN 30.2 pg (27.0-31.0); MEAN CORPUSCULAR HGB CONC 32.3 g/dL (33.0-37.0); RBC 4.02 Mil/uL (3.80-5.20); RED CELL DISTRIBUTION WIDTH 17.3 % (11.5-14.5); WHITE BLOOD COUNT 11.2 K/uL (4.8-10.8)
[2019-01-27 06:00] LABS: BLOOD UREA NITROGEN 10 mg/dl (7-17); CALCIUM 8.6 mg/dL (8.4-10.2); GFR NON-AFRICAN AMERICAN > 60
[2019-01-27] MEDS: BUPROPION HCL 300 MG PO SCH (08:13)
[2019-01-27] MEDS: BREXPIPRAZOLE 1 MG PO SCH (08:13)
[2019-01-27] MEDS: Lactobacillus Acidophilus 500 MU Cap PO SCH (16:01)
[2019-01-27] MEDS: Lactated Ringer's 1,000 ML IV SCH (16:08)
--- NOTE | 2019-01-27 16:21 | CP.PCM.PN ---
Subjective - Date & Time of Evaluation Date of Evaluation: 01/27/19 Time of Evaluation: 12:00 - Subjective Subjective: Patient seen and examined OOB to chair comfortable. Pain is well controlled. Transferred to telemetry from ICU stable. No acute events overnight. Denies ORO/dizziness. Objective - Vital Signs/Intake and Output Vital Signs (last 24 hours): Temp Pulse Resp BP Pulse Ox 98.2 F 75 18 161/91 H 97 01/27/19 16:07 01/27/19 16:07 01/27/19 16:07 01/27/19 16:07 01/27/19 16:07 Intake and Output: 01/27/19 01/27/19 06:59 18:59 Output Total 30 Balance -30 - Medications Medications: Current Medications Acetaminophen (Tylenol 325mg Tab) 650 mg PO Q4 PRN PRN Reason: Fever >100.4 F Acetaminophen (Tylenol 325mg Tab) 650 mg PO Q6 PRN PRN Reason: Pain, Mild (1-3) Last Admin: 01/23/19 16:36 Dose: 650 mg Docusate Sodium (Colace) 100 mg PO BID [facility] Last Admin: 01/27/19 16:03 Dose: Not Given Gabapentin (Neurontin) 300 mg PO DAILY [facility] Last Admin: 01/27/19 08:14 Dose: 300 mg Home Med (Brexpiprazole [Rexulti]) 1 mg PO DAILY [facility] Last Admin: 01/27/19 08:13 Dose: 1 mg Home Med (Bupropion Hcl [Wellbutrin Xl]) 300 mg PO DAILY [facility] Last Admin: 01/27/19 08:13 Dose: 300 mg Piperacillin Sod/Tazobactam (Sod 4.5 gm/ Sodium Chloride) 100 mls @ 100 mls/hr IVPB Q8H [facility]; Protocol Last Admin: 01/27/19 13:00 Dose: 100 mls/hr Vancomycin HCl 1 gm/ Sodium (Chloride) 250 mls @ 166.667 mls/hr IVPB Q8H [facility]; Protocol Last Admin: 01/27/19 16:02 Dose: 166.667 mls/hr Lactated Ringer's (Lactated Ringer's) 1,000 mls @ 40 mls/hr IV .Q24H [facility] Last Admin: 01/27/19 16:08 Dose: Not Given Lactobacillus Acidophilus (Bacid Acidophilus) 1 cap PO BID [facility] Last Admin: 01/27/19 16:01 Dose: 1 cap Levetiracetam (Keppra) 500 mg PO BID [facility] Last Admin: 01/27/19 16:04 Dose: 500 mg Loperamide HCl (Imodium) 2 mg PO Q6 PRN PRN Reason: Diarrhea Last Admin: 01/24/19 14:22 Dose: 2 mg Morphine Sulfate (Morphine) 1 mg IVP Q6 PRN PRN Reason: Pain, moderate (4-7) Last Admin: 01/26/19 00:13 Dose: 1 mg Morphine Sulfate (Morphine) 2 mg IVP Q6 PRN PRN Reason: Pain, severe (8-10) Last Admin: 01/26/19 05:32 Dose: 2 mg Ondansetron HCl (Zofran Inj) 4 mg IVP Q4 PRN PRN Reason: Nausea/Vomiting Oxycodone/Acetaminophen (Percocet 5/325 Mg Tab) 2 tab PO Q4 PRN PRN Reason: Pain, moderate (4-7) Stop: 01/28/19 13:50 Last Admin: 01/26/19 09:15 Dose: 2 tab Oxycodone/Acetaminophen (Percocet 5/325 Mg Tab) 1 tab PO Q4 PRN PRN Reason: Pain, Mild (1-3) Stop: 01/28/19 13:50 Sertraline HCl (Zoloft) 100 mg PO DAILY [facility] Last Admin: 01/27/19 08:13 Dose: 100 mg - Labs Labs: 01/27/19 05:15 01/27/19 05:15 PT 11.7 Seconds (9.8-13.1) 01/22/19 21:41 INR 1.0 01/22/19 21:41 APTT 32.4 Seconds (25.6-37.1) 01/22/19 21:41 - Head Exam Additional comments: Dressings intact Incision CDI with silk suture drain intact with mild serosang drainage mild periwound swelling and tenderness - Neurological Exam Neurological Exam: Alert, Awake, CN II-XII Intact, Oriented x3 Assessment and Plan (1) Cutaneous abscess of head excluding face Assessment & Plan: POD#2 s/p re-exploration craniotomy, I&D of abscess -Drain removed, dressings applied -Neuro checks -pain control -PT/OT -neurosurgically stable for d/c to home -abx as per ID, PICC to be placed -d/w Dr. Lance who agrees with above Status: Acute
--- NOTE | 2019-01-27 17:41 | CP.PCM.PN ---
Subjective - Date & Time of Evaluation Date of Evaluation: 01/27/19 Time of Evaluation: 08:00 - Subjective Subjective: events noted rx renewed Objective - Vital Signs/Intake and Output Vital Signs (last 24 hours): Temp Pulse Resp BP Pulse Ox 98.2 F 75 18 161/91 H 97 01/27/19 16:07 01/27/19 16:07 01/27/19 16:07 01/27/19 16:07 01/27/19 16:07 Intake and Output: 01/27/19 01/27/19 06:59 18:59 Output Total 30 Balance -30 - Medications Medications: Current Medications Acetaminophen (Tylenol 325mg Tab) 650 mg PO Q4 PRN PRN Reason: Fever >100.4 F Acetaminophen (Tylenol 325mg Tab) 650 mg PO Q6 PRN PRN Reason: Pain, Mild (1-3) Last Admin: 01/23/19 16:36 Dose: 650 mg Docusate Sodium (Colace) 100 mg PO BID [facility] Last Admin: 01/27/19 16:03 Dose: Not Given Gabapentin (Neurontin) 300 mg PO DAILY [facility] Last Admin: 01/27/19 08:14 Dose: 300 mg Home Med (Brexpiprazole [Rexulti]) 1 mg PO DAILY [facility] Last Admin: 01/27/19 08:13 Dose: 1 mg Home Med (Bupropion Hcl [Wellbutrin Xl]) 300 mg PO DAILY [facility] Last Admin: 01/27/19 08:13 Dose: 300 mg Piperacillin Sod/Tazobactam (Sod 4.5 gm/ Sodium Chloride) 100 mls @ 100 mls/hr IVPB Q8H [facility]; Protocol Last Admin: 01/27/19 13:00 Dose: 100 mls/hr Lactated Ringer's (Lactated Ringer's) 1,000 mls @ 40 mls/hr IV .Q24H [facility] Last Admin: 01/27/19 16:08 Dose: Not Given Lactobacillus Acidophilus (Bacid Acidophilus) 1 cap PO BID [facility] Last Admin: 01/27/19 16:01 Dose: 1 cap Levetiracetam (Keppra) 500 mg PO BID [facility] Last Admin: 01/27/19 16:04 Dose: 500 mg Loperamide HCl (Imodium) 2 mg PO Q6 PRN PRN Reason: Diarrhea Last Admin: 01/24/19 14:22 Dose: 2 mg Morphine Sulfate (Morphine) 1 mg IVP Q6 PRN PRN Reason: Pain, moderate (4-7) Last Admin: 01/26/19 00:13 Dose: 1 mg Morphine Sulfate (Morphine) 2 mg IVP Q6 PRN PRN Reason: Pain, severe (8-10) Last Admin: 01/26/19 05:32 Dose: 2 mg Ondansetron HCl (Zofran Inj) 4 mg IVP Q4 PRN PRN Reason: Nausea/Vomiting Oxycodone/Acetaminophen (Percocet 5/325 Mg Tab) 2 tab PO Q4 PRN PRN Reason: Pain, moderate (4-7) Stop: 01/28/19 13:50 Last Admin: 01/26/19 09:15 Dose: 2 tab Oxycodone/Acetaminophen (Percocet 5/325 Mg Tab) 1 tab PO Q4 PRN PRN Reason: Pain, Mild (1-3) Stop: 01/28/19 13:50 Sertraline HCl (Zoloft) 100 mg PO DAILY [facility] Last Admin: 01/27/19 08:13 Dose: 100 mg - Labs Labs: 01/27/19 05:15 01/27/19 05:15 PT 11.7 Seconds (9.8-13.1) 01/22/19 21:41 INR 1.0 01/22/19 21:41 APTT 32.4 Seconds (25.6-37.1) 01/22/19 21:41 - Constitutional Appears: Non-toxic - Head Exam Head Exam: ATRAUMATIC. absent: NORMAL INSPECTION - Eye Exam Eye Exam: absent: Scleral icterus Pupil Exam: NORMAL ACCOMODATION - ENT Exam ENT Exam: Mucous Membranes Dry - Neck Exam Neck Exam: Full ROM, Normal Inspection. absent: Lymphadenopathy - Respiratory Exam Respiratory Exam: Clear to Ausculation Bilateral, NORMAL BREATHING PATTERN - Cardiovascular Exam Cardiovascular Exam: REGULAR RHYTHM, +S1, +S2. absent: Murmur - GI/Abdominal Exam GI & Abdominal Exam: Soft, Normal Bowel Sounds. absent: Tenderness - Rectal Exam Rectal Exam: Deferred - Exam Exam: NORMAL INSPECTION - Extremities Exam Extremities Exam: Full ROM, Normal Capillary Refill, Normal Inspection. absent: Joint Swelling, Pedal Edema - Back Exam Back Exam: NORMAL INSPECTION - Neurological Exam Neurological Exam: Alert, Awake, CN II-XII Intact, Normal Gait, Oriented x3 - Psychiatric Exam Psychiatric exam: Normal Affect, Normal Mood - Skin Skin Exam: Dry, Intact, Normal Color, Warm Assessment and Plan (1) Brain hemangioma Status: Acute (2) Infected craniotomy plate Status: Acute (3) H/O craniotomy Status: Acute (4) H/O craniotomy Status: Acute (5) Infection of craniotomy plate Status: Acute (6) Post-operative wound abscess Status: Acute - Assessment and Plan (Free Text) Assessment: cont iv rx await path report
[2019-01-28] MEDS: Piperacillin/Tazobact 4.5 GM in Sodium Chloride 0.9% 100 ML IVPB SCH ×3 (05:11→21:58)
--- NOTE | 2019-01-28 08:30 | CP.PCM.PN ---
Subjective - Date & Time of Evaluation Date of Evaluation: 01/28/19 Time of Evaluation: 07:45 - Subjective Subjective: Patient seen and examined at bedside comfortable. Eager to d/c home. Pain well controlled. Tolerating PT well without issues, including stair climbing. No other complaints. Objective - Vital Signs/Intake and Output Vital Signs (last 24 hours): Temp Pulse Resp BP Pulse Ox 98.3 F 84 18 118/76 95 01/28/19 08:03 01/28/19 08:03 01/28/19 08:03 01/28/19 08:03 01/28/19 08:03 - Medications Medications: Current Medications Acetaminophen (Tylenol 325mg Tab) 650 mg PO Q4 PRN PRN Reason: Fever >100.4 F Acetaminophen (Tylenol 325mg Tab) 650 mg PO Q6 PRN PRN Reason: Pain, Mild (1-3) Last Admin: 01/23/19 16:36 Dose: 650 mg Docusate Sodium (Colace) 100 mg PO BID [facility] Last Admin: 01/27/19 16:03 Dose: Not Given Gabapentin (Neurontin) 300 mg PO DAILY [facility] Last Admin: 01/27/19 08:14 Dose: 300 mg Home Med (Brexpiprazole [Rexulti]) 1 mg PO DAILY [facility] Last Admin: 01/27/19 08:13 Dose: 1 mg Home Med (Bupropion Hcl [Wellbutrin Xl]) 300 mg PO DAILY [facility] Last Admin: 01/27/19 08:13 Dose: 300 mg Piperacillin Sod/Tazobactam (Sod 4.5 gm/ Sodium Chloride) 100 mls @ 100 mls/hr IVPB Q8H [facility]; Protocol Last Admin: 01/28/19 05:11 Dose: 100 mls/hr Lactated Ringer's (Lactated Ringer's) 1,000 mls @ 40 mls/hr IV .Q24H [facility] Last Admin: 01/27/19 16:08 Dose: Not Given Vancomycin HCl 1 gm/ Sodium (Chloride) 250 mls @ 166.667 mls/hr IVPB Q12H [facility]; Protocol Last Admin: 01/27/19 22:45 Dose: 166.667 mls/hr Lactobacillus Acidophilus (Bacid Acidophilus) 1 cap PO BID [facility] Last Admin: 01/27/19 16:01 Dose: 1 cap Levetiracetam (Keppra) 500 mg PO BID [facility] Last Admin: 01/27/19 16:04 Dose: 500 mg Loperamide HCl (Imodium) 2 mg PO Q6 PRN PRN Reason: Diarrhea Last Admin: 01/24/19 14:22 Dose: 2 mg Ondansetron HCl (Zofran Inj) 4 mg IVP Q4 PRN PRN Reason: Nausea/Vomiting Oxycodone/Acetaminophen (Percocet 5/325 Mg Tab) 2 tab PO Q4 PRN PRN Reason: Pain, moderate (4-7) Stop: 01/28/19 13:50 Last Admin: 01/26/19 09:15 Dose: 2 tab Oxycodone/Acetaminophen (Percocet 5/325 Mg Tab) 1 tab PO Q4 PRN PRN Reason: Pain, Mild (1-3) Stop: 01/28/19 13:50 Sertraline HCl (Zoloft) 100 mg PO DAILY [facility] Last Admin: 01/27/19 08:13 Dose: 100 mg - Labs Labs: 01/27/19 05:15 01/27/19 05:15 PT 11.7 Seconds (9.8-13.1) 01/22/19 21:41 INR 1.0 01/22/19 21:41 APTT 32.4 Seconds (25.6-37.1) 01/22/19 21:41 - Head Exam Additional comments: Dressings intact Incision CDI with silk suture drain site CDI without drainage mild periwound swelling and tenderness, improved since yesterday Assessment and Plan (1) Cutaneous abscess of head excluding face Assessment & Plan: POD#3 s/p re-exploration craniotomy, I&D of abscess -dressings changed with wound care nurse -PT/OT -helmet received, to be used when outdoors, may remove when at home -neurosurgically stable for d/c to home -abx as per ID, PICC to be placed tomorrow AM -f/u in office in two weeks, leave dressings until seen in office -d/w Dr. Lance who agrees with above Status: Acute
[2019-01-28] MEDS: BREXPIPRAZOLE 1 MG PO SCH (09:18)
[2019-01-28] MEDS: BUPROPION HCL 300 MG PO SCH (09:18)
[2019-01-28] MEDS: Lactobacillus Acidophilus 500 MU Cap PO SCH ×2 (09:22→17:04)
[2019-01-28] MEDS: Lactated Ringer's 1,000 ML IV SCH ×2 (09:36→11:22)
--- NOTE | 2019-01-28 14:16 | CP.PCM.PCO ---
Assessment/Plan - Assessment and Plan (Free Text) Assessment: Patient seen and examined this morning at bedside. Family at bedside. Patient ao x 3, no complaints of pain, denies nausea vomiting diarrhea headaches. Ambulated with physical therapy with hard helmet with steady gait. Pathology results back and discussed with Dr Black, Patient will need 3 weeks of iv cefepime and iv vancomycin for ecoli in the cultures. Will arrange for PICC line and home infusions as patient prefers to go home as opposed to a [facility]. MICKY Metz made aware for antibiotic arrangements at home Patient cleared by Neurosurgery for discharge. All discussed with Hussein LEPE with Dr Crespo.
--- NOTE | 2019-01-28 16:29 | PQF ---
PROVIDER RESPONSE TEXT: Patient admitted due to cranial abscess s/p craniotomy. REVIEWER QUERY TEXT: Documentation Clarification Your help is requested in clarifying the following clinical documentation, if you can please further specify in the medical record and discharge summary if there is an associated diagnosis or not regard ing the following documentation: 01/25/19 Initial consultation: L parietal wound with mild purulent drainage from mid wound, rest of the wound intact: ( ie: Dehiscence, Non-healing wound , other explanation, unable to determine The patient's Clinical Indicators include: Admitted with purulent drainage from craniotomy site. Failed outpatient treatment. Rx: IVAB Query created by: Gwendolyn Lawrence on 01/27/2019 2:13 PM Electronically signed by: Eulogio BLAIR 01/28/2019 4:27 PM
--- NOTE | 2019-01-28 22:34 | CP.PCM.PN ---
Subjective - Date & Time of Evaluation Date of Evaluation: 01/28/19 Time of Evaluation: 08:00 - Subjective Subjective: comfortable wound inspected Objective - Vital Signs/Intake and Output Vital Signs (last 24 hours): Temp Pulse Resp BP Pulse Ox 99.6 F 80 17 111/67 94 L 01/28/19 19:39 01/28/19 19:39 01/28/19 19:39 01/28/19 19:39 01/28/19 19:39 - Medications Medications: Current Medications Acetaminophen (Tylenol 325mg Tab) 650 mg PO Q4 PRN PRN Reason: Fever >100.4 F Acetaminophen (Tylenol 325mg Tab) 650 mg PO Q6 PRN PRN Reason: Pain, Mild (1-3) Last Admin: 01/23/19 16:36 Dose: 650 mg Docusate Sodium (Colace) 100 mg PO BID [facility] Last Admin: 01/28/19 17:02 Dose: Not Given Gabapentin (Neurontin) 300 mg PO DAILY [facility] Last Admin: 01/28/19 09:16 Dose: 300 mg Home Med (Brexpiprazole [Rexulti]) 1 mg PO DAILY [facility] Last Admin: 01/28/19 09:18 Dose: 1 mg Home Med (Bupropion Hcl [Wellbutrin Xl]) 300 mg PO DAILY [facility] Last Admin: 01/28/19 09:18 Dose: 300 mg Piperacillin Sod/Tazobactam (Sod 4.5 gm/ Sodium Chloride) 100 mls @ 100 mls/hr IVPB Q8H [facility]; Protocol Last Admin: 01/28/19 21:58 Dose: 100 mls/hr Lactated Ringer's (Lactated Ringer's) 1,000 mls @ 40 mls/hr IV .Q24H [facility] Last Admin: 01/28/19 11:22 Dose: Not Given Vancomycin HCl 1 gm/ Sodium (Chloride) 250 mls @ 166.667 mls/hr IVPB Q12H [facility]; Protocol Last Admin: 01/28/19 21:58 Dose: 166.667 mls/hr Lactobacillus Acidophilus (Bacid Acidophilus) 1 cap PO BID [facility] Last Admin: 01/28/19 17:04 Dose: 1 cap Levetiracetam (Keppra) 500 mg PO BID [facility] Last Admin: 01/28/19 17:05 Dose: 500 mg Loperamide HCl (Imodium) 2 mg PO Q6 PRN PRN Reason: Diarrhea Last Admin: 01/28/19 09:18 Dose: 2 mg Ondansetron HCl (Zofran Inj) 4 mg IVP Q4 PRN PRN Reason: Nausea/Vomiting Sertraline HCl (Zoloft) 100 mg PO DAILY [facility] Last Admin: 01/28/19 09:19 Dose: 100 mg - Labs Labs: 01/27/19 05:15 01/27/19 05:15 PT 11.7 Seconds (9.8-13.1) 01/22/19 21:41 INR 1.0 01/22/19 21:41 APTT 32.4 Seconds (25.6-37.1) 01/22/19 21:41 - Constitutional Appears: Well, No Acute Distress, Chronically Ill - Head Exam Head Exam: ATRAUMATIC - Eye Exam Eye Exam: EOMI, Normal appearance, PERRL Pupil Exam: NORMAL ACCOMODATION, PERRL - ENT Exam ENT Exam: Mucous Membranes Moist, Normal Exam - Neck Exam Neck Exam: Full ROM, Normal Inspection. absent: Lymphadenopathy - Respiratory Exam Respiratory Exam: Clear to Ausculation Bilateral, NORMAL BREATHING PATTERN - Cardiovascular Exam Cardiovascular Exam: REGULAR RHYTHM, +S1, +S2. absent: Murmur - GI/Abdominal Exam GI & Abdominal Exam: Soft, Normal Bowel Sounds. absent: Tenderness - Rectal Exam Rectal Exam: Deferred - Exam Exam: NORMAL INSPECTION - Extremities Exam Extremities Exam: Full ROM, Normal Capillary Refill, Normal Inspection. absent: Joint Swelling, Pedal Edema - Back Exam Back Exam: NORMAL INSPECTION - Neurological Exam Neurological Exam: Alert, Awake, CN II-XII Intact, Normal Gait, Oriented x3 - Psychiatric Exam Psychiatric exam: Normal Affect, Normal Mood - Skin Skin Exam: Dry, Intact, Normal Color, Warm Assessment and Plan (1) Brain hemangioma Status: Acute (2) Infected craniotomy plate Status: Acute (3) H/O craniotomy Status: Acute (4) H/O craniotomy Status: Acute (5) Infection of craniotomy plate Status: Acute (6) Post-operative wound abscess Status: Acute - Assessment and Plan (Free Text) Assessment: for PICC line cont IV antibiotics for 3 - 6 weeks with Neurosurg follow up
--- NOTE | 2019-01-29 01:47 | CP.PCM.PN ---
Subjective - Date & Time of Evaluation Date of Evaluation: 01/28/19 Time of Evaluation: 11:00 - Subjective Subjective: Pt seen and assessed, ambulating around the halls with help of physical therapy team. Reports doing well s/p I&D of cranial wound site. 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 Review of Systems: Reviewed and no additional remarkable complaints except tenderness to craniotomy operative site. Objective Appears: Calm, Non-toxic, No Acute Distress. Head Exam: Normocephalic, dressing to head noted. Eye Exam: Normal eye inspection, EOMI, PERRLA. Respiratory Exam: NORMAL BREATHING PATTERN, breath sounds clear to auscultation. Cardiovascular Exam: +S1, +S2. RRR. GI & Abdominal Exam: Soft, non-tender, non-distended. Musculoskeletal Exam: Full strength to BUE and BLE. Neurological Exam: Alert, awake, oriented x 3. Psychiatric exam: Normal mood. Calm and cooperative. Skin exam: Parietal area dressing in place. Assessment/Impression/Plan: 1.) Craniotomy wound infection -S/P I&D of cranial operative wound site. -Ambulating around the vega with PT/OT. -On IV antibiotics (Vanco and Zosyn). -No current s/s infection. -For PICC line insertion tomorrow. -For D/C tomorrow on IV antibiotics after insertion of PICC line. Objective - Vital Signs/Intake and Output Vital Signs (last 24 hours): Temp Pulse Resp BP Pulse Ox 98.0 F 81 18 148/69 97 01/29/19 00:06 01/29/19 00:06 01/29/19 00:06 01/29/19 00:06 01/29/19 00:06 - Medications Medications: Current Medications Acetaminophen (Tylenol 325mg Tab) 650 mg PO Q4 PRN PRN Reason: Fever >100.4 F Acetaminophen (Tylenol 325mg Tab) 650 mg PO Q6 PRN PRN Reason: Pain, Mild (1-3) Last Admin: 01/23/19 16:36 Dose: 650 mg Docusate Sodium (Colace) 100 mg PO BID [facility] Last Admin: 01/28/19 17:02 Dose: Not Given Gabapentin (Neurontin) 300 mg PO DAILY [facility] Last Admin: 01/28/19 09:16 Dose: 300 mg Home Med (Brexpiprazole [Rexulti]) 1 mg PO DAILY [facility] Last Admin: 01/28/19 09:18 Dose: 1 mg Home Med (Bupropion Hcl [Wellbutrin Xl]) 300 mg PO DAILY [facility] Last Admin: 01/28/19 09:18 Dose: 300 mg Piperacillin Sod/Tazobactam (Sod 4.5 gm/ Sodium Chloride) 100 mls @ 100 mls/hr IVPB Q8H [facility]; Protocol Last Admin: 01/28/19 21:58 Dose: 100 mls/hr Lactated Ringer's (Lactated Ringer's) 1,000 mls @ 40 mls/hr IV .Q24H [facility] Last Admin: 01/28/19 11:22 Dose: Not Given Vancomycin HCl 1 gm/ Sodium (Chloride) 250 mls @ 166.667 mls/hr IVPB Q12H [facility]; Protocol Last Admin: 01/28/19 21:58 Dose: 166.667 mls/hr Lactobacillus Acidophilus (Bacid Acidophilus) 1 cap PO BID [facility] Last Admin: 01/28/19 17:04 Dose: 1 cap Levetiracetam (Keppra) 500 mg PO BID [facility] Last Admin: 01/28/19 17:05 Dose: 500 mg Loperamide HCl (Imodium) 2 mg PO Q6 PRN PRN Reason: Diarrhea Last Admin: 01/28/19 09:18 Dose: 2 mg Ondansetron HCl (Zofran Inj) 4 mg IVP Q4 PRN PRN Reason: Nausea/Vomiting Sertraline HCl (Zoloft) 100 mg PO DAILY [facility] Last Admin: 01/28/19 09:19 Dose: 100 mg - Labs Labs: 01/27/19 05:15 01/27/19 05:15 PT 11.7 Seconds (9.8-13.1) 01/22/19 21:41 INR 1.0 01/22/19 21:41 APTT 32.4 Seconds (25.6-37.1) 01/22/19 21:41 Assessment and Plan (1) Post-operative wound abscess Status: Acute (2) Encounter for postoperative wound check Status: Acute
[2019-01-29] MEDS: Piperacillin/Tazobact 4.5 GM in Sodium Chloride 0.9% 100 ML IVPB SCH (05:08)
[2019-01-29] MEDS: BUPROPION HCL 300 MG PO SCH (08:15)
[2019-01-29] MEDS: Lactobacillus Acidophilus 500 MU Cap PO SCH ×2 (08:15→16:15)
[2019-01-29] MEDS: BREXPIPRAZOLE 1 MG PO SCH (08:15)
[2019-01-29] MEDS ORDERED: Lidocaine Hydrochloride 1% 10 ML ONE (09:47)
--- NOTE | 2019-01-29 10:05 | CP.PCM.PN ---
Subjective - Date & Time of Evaluation Date of Evaluation: 01/29/19 Time of Evaluation: 10:06 - Subjective Subjective: No new complaints. Anxious to go home. Objective - Vital Signs/Intake and Output Vital Signs (last 24 hours): Temp Pulse Resp BP Pulse Ox 99.2 F 80 18 153/80 H 95 01/29/19 09:43 01/29/19 09:43 01/29/19 09:43 01/29/19 09:43 01/29/19 08:20 - Medications Medications: Current Medications Acetaminophen (Tylenol 325mg Tab) 650 mg PO Q4 PRN PRN Reason: Fever >100.4 F Acetaminophen (Tylenol 325mg Tab) 650 mg PO Q6 PRN PRN Reason: Pain, Mild (1-3) Last Admin: 01/23/19 16:36 Dose: 650 mg Docusate Sodium (Colace) 100 mg PO BID [facility] Last Admin: 01/29/19 08:15 Dose: Not Given Gabapentin (Neurontin) 300 mg PO DAILY [facility] Last Admin: 01/29/19 08:16 Dose: 300 mg Home Med (Brexpiprazole [Rexulti]) 1 mg PO DAILY [facility] Last Admin: 01/29/19 08:15 Dose: 1 mg Home Med (Bupropion Hcl [Wellbutrin Xl]) 300 mg PO DAILY [facility] Last Admin: 01/29/19 08:15 Dose: 300 mg Piperacillin Sod/Tazobactam (Sod 4.5 gm/ Sodium Chloride) 100 mls @ 100 mls/hr IVPB Q8H [facility]; Protocol Last Admin: 01/29/19 05:08 Dose: 100 mls/hr Lactated Ringer's (Lactated Ringer's) 1,000 mls @ 40 mls/hr IV .Q24H [facility] Last Admin: 01/28/19 11:22 Dose: Not Given Vancomycin HCl 1 gm/ Sodium (Chloride) 250 mls @ 166.667 mls/hr IVPB Q12H [facility]; Protocol Last Admin: 01/28/19 21:58 Dose: 166.667 mls/hr Lactobacillus Acidophilus (Bacid Acidophilus) 1 cap PO BID [facility] Last Admin: 01/29/19 08:15 Dose: 1 cap Levetiracetam (Keppra) 500 mg PO BID [facility] Last Admin: 01/29/19 08:16 Dose: 500 mg Loperamide HCl (Imodium) 2 mg PO Q6 PRN PRN Reason: Diarrhea Last Admin: 01/28/19 09:18 Dose: 2 mg Ondansetron HCl (Zofran Inj) 4 mg IVP Q4 PRN PRN Reason: Nausea/Vomiting Sertraline HCl (Zoloft) 100 mg PO DAILY [facility] Last Admin: 01/29/19 08:16 Dose: 100 mg - Labs Labs: 01/27/19 05:15 01/27/19 05:15 PT 11.7 Seconds (9.8-13.1) 01/22/19 21:41 INR 1.0 01/22/19 21:41 APTT 32.4 Seconds (25.6-37.1) 01/22/19 21:41 - Head Exam Additional comments: Dressings intact Incision CDI with silk suture drain site CDI without drainage Assessment and Plan (1) Subdural abscess Assessment & Plan: POD#2 s/p reexploration of craniotomy, drainage of abscess and debridement/closure of wound for PICC line today 3-6 weeks of IV antibiotics per Dr. Black d/w Dr. Lance, agrees with above Status: Acute
--- NOTE | 2019-01-29 10:20 | PCM.SURG1 ---
Surgeon's Initial Post Op Note - Surgeon's Notes Surgeon: Reyes Montesinos MD [employer] Ecologist: NONE Type of Anesthesia: Local Pre-Operative Diagnosis: Infection Operative Findings: US showed a patent left basilic vein Post-Operative Diagnosis: Infection Operation Performed: Single lumen picc left arm, 45 cm. Tip in SVC. Specimen/Specimens Removed: NONE Estimated Blood Loss: EBL {In ML}: 2 Blood Products Given: N/A Drains Used: No Drains Post-Op Condition: Fair Date of Surgery/Procedure: 01/29/19 Time of Surgery/Procedure: 10:15
[2019-01-29] MEDS: Lactated Ringer's 1,000 ML IV SCH (10:38)
[2019-01-29] MEDS ORDERED: Cefepime 1 GM in Sodium Chloride 0.9% 100 ML IVPB STA (11:41)
--- NOTE | 2019-01-29 12:22 | VASCULAR ---
PROCEDURE: Date of procedure: 01/29/2019 Procedure: 1. Placement of a left arm PICC with ultrasound and fluoroscopic guidance, CPT 21418 2. PICC tip confirmation with spot radiograph and is in the superior vena cava Medications: 1 percent lidocaine Total Fluoro time: 18.8 Seconds Radiation: 4.87 MGy EBL: 3 cc HISTORY: Infection requiring long-term IV antibiotics TECHNIQUE: Following informed consent and procedure time-out, the patient placed supine on the interventional table and the left arm prepped and draped in the usual sterile fashion. Ultrasound showed a patent and compressible left basilic vein. After the skin was anesthetized with lidocaine, the basilic vein was accessed with micro micropuncture technique using ultrasound guidance. A guidewire was then advanced under fluoroscopic guidance into the superior vena cava. An image documenting ultrasound guidance for vascular access was permanently saved. The length of a single-lumen 4 [place] PICC was trimmed to 45 cm and advanced through a peel-away sheath. The PICC was position with tip of PICC confirm a spot radiograph the superior vena cava. The PICC was secured to the patient's skin. The PICC was flushed. A biopatch and sterile dressing was applied. IMPRESSION: Placement of a single-lumen 4 [place] PICC left basilic vein trimmed to 45 cm. The tip of the PICC is confirmed with spot radiograph and is in the superior vena cava.
--- NOTE | 2019-01-29 13:06 | CP.PCM.PN ---
Subjective - Date & Time of Evaluation Date of Evaluation: 01/29/19 Time of Evaluation: 07:00 - Subjective Subjective: afebrile nad denies fever / chills weakness RUE persists Objective - Vital Signs/Intake and Output Vital Signs (last 24 hours): Temp Pulse Resp BP Pulse Ox 98.2 F 69 18 146/84 95 01/29/19 12:15 01/29/19 12:15 01/29/19 12:15 01/29/19 12:15 01/29/19 12:15 - Medications Medications: Current Medications Acetaminophen (Tylenol 325mg Tab) 650 mg PO Q4 PRN PRN Reason: Fever >100.4 F Acetaminophen (Tylenol 325mg Tab) 650 mg PO Q6 PRN PRN Reason: Pain, Mild (1-3) Last Admin: 01/23/19 16:36 Dose: 650 mg Docusate Sodium (Colace) 100 mg PO BID [facility] Last Admin: 01/29/19 08:15 Dose: Not Given Gabapentin (Neurontin) 300 mg PO DAILY [facility] Last Admin: 01/29/19 08:16 Dose: 300 mg Home Med (Brexpiprazole [Rexulti]) 1 mg PO DAILY [facility] Last Admin: 01/29/19 08:15 Dose: 1 mg Home Med (Bupropion Hcl [Wellbutrin Xl]) 300 mg PO DAILY [facility] Last Admin: 01/29/19 08:15 Dose: 300 mg Piperacillin Sod/Tazobactam (Sod 4.5 gm/ Sodium Chloride) 100 mls @ 100 mls/hr IVPB Q8H [facility]; Protocol Last Admin: 01/29/19 05:08 Dose: 100 mls/hr Lactated Ringer's (Lactated Ringer's) 1,000 mls @ 40 mls/hr IV .Q24H [facility] Last Admin: 01/29/19 10:38 Dose: 40 mls/hr Vancomycin HCl 1 gm/ Sodium (Chloride) 250 mls @ 166.667 mls/hr IVPB Q12H [facility]; Protocol Last Admin: 01/29/19 10:37 Dose: 166.667 mls/hr Lactobacillus Acidophilus (Bacid Acidophilus) 1 cap PO BID [facility] Last Admin: 01/29/19 08:15 Dose: 1 cap Levetiracetam (Keppra) 500 mg PO BID [facility] Last Admin: 01/29/19 08:16 Dose: 500 mg Loperamide HCl (Imodium) 2 mg PO Q6 PRN PRN Reason: Diarrhea Last Admin: 01/28/19 09:18 Dose: 2 mg Ondansetron HCl (Zofran Inj) 4 mg IVP Q4 PRN PRN Reason: Nausea/Vomiting Sertraline HCl (Zoloft) 100 mg PO DAILY [facility] Last Admin: 01/29/19 08:16 Dose: 100 mg - Labs Labs: 01/27/19 05:15 01/27/19 05:15 PT 11.7 Seconds (9.8-13.1) 01/22/19 21:41 INR 1.0 01/22/19 21:41 APTT 32.4 Seconds (25.6-37.1) 01/22/19 21:41 - Constitutional Appears: Well, No Acute Distress, Chronically Ill - Head Exam Head Exam: ATRAUMATIC, NORMAL INSPECTION. absent: NORMOCEPHALIC - Eye Exam Eye Exam: EOMI, Normal appearance, PERRL Pupil Exam: NORMAL ACCOMODATION, PERRL - ENT Exam ENT Exam: Mucous Membranes Moist, Normal Exam - Neck Exam Neck Exam: Full ROM, Normal Inspection. absent: Lymphadenopathy - Respiratory Exam Respiratory Exam: Clear to Ausculation Bilateral, NORMAL BREATHING PATTERN - Cardiovascular Exam Cardiovascular Exam: REGULAR RHYTHM, +S1, +S2. absent: Murmur - GI/Abdominal Exam GI & Abdominal Exam: Soft, Normal Bowel Sounds. absent: Tenderness - Rectal Exam Rectal Exam: Deferred - Exam Exam: NORMAL INSPECTION - Extremities Exam Extremities Exam: Full ROM, Normal Capillary Refill, Normal Inspection. absent: Joint Swelling, Pedal Edema - Back Exam Back Exam: NORMAL INSPECTION - Neurological Exam Neurological Exam: Alert, Awake, CN II-XII Intact, Motor Sensory Deficit, Oriented x3, Reflexes Normal. absent: Normal Gait Neuro motor strength exam: Left Upper Extremity: 5, Right Upper Extremity: 3, Left Lower Extremity: 5, Right Lower Extremity: 4 - Psychiatric Exam Psychiatric exam: Normal Affect, Normal Mood - Skin Skin Exam: Dry, Intact, Normal Color, Warm Assessment and Plan (1) Brain hemangioma Status: Acute (2) Infected craniotomy plate Status: Acute (3) H/O craniotomy Status: Acute (4) H/O craniotomy Status: Acute (5) Infection of craniotomy plate Status: Acute (6) Post-operative wound abscess Status: Acute - Assessment and Plan (Free Text) Assessment: cont iv rx for min 3-4 weeks with neurosurg eval for possible 6-8 week course
[2019-01-29] MEDS: Cefepime 1 GM in Sodium Chloride 0.9% 100 ML IVPB SCH (22:28)
[2019-01-30] MEDS: Cefepime 1 GM in Sodium Chloride 0.9% 100 ML IVPB SCH ×2 (08:36→20:00)
[2019-01-30] MEDS: Lactobacillus Acidophilus 500 MU Cap PO SCH ×2 (08:36→16:27)
[2019-01-30] MEDS: BREXPIPRAZOLE 1 MG PO SCH (08:37)
[2019-01-30] MEDS: BUPROPION HCL 300 MG PO SCH (08:37)
--- NOTE | 2019-01-30 09:47 | CP.PCM.CON ---
History of Present Illness - History of Present Illness History of Present Illness: This 63-year-old female who underwent an exploratory craniotomy and drainage of an abscess and irrigation on January 25 demonstrated an abrupt episode of brief bradycardia followed by a 3-second pause on telemetry. The patient gives history of having been a hypertensive for a number of years ~3 years back and subsequently has not required any antihypertensive medications since her blood pressure has been normal. She has a long history of severe osteoarthritic pains in both knees and lower back pain and used to take multiple pain medications which she has weaned herself off of as well she denies any history of being on a beta-jimmy or requiring any eyedrops for glaucoma. There is no prior history of fainting episodes or near syncopal episodes. Physical examination shows an elderly pleasant overweight female quite alert awake coherent afebrile sitting up comfortably in a chair. Telemetry shows steady sinus rhythm with rare isolated premature atrial beats. Her heart rate was within physiological range. Her blood pressure was 148/70 mmHg. Her jugular venous pressure could not be adequately evaluated because of a short thick neck. There was no pitting edema over both lower extremities. The pedal pulses were well felt. There were no carotid bruits. The apex was not palpable the first and second heart sounds were normal. There was no murmur or gallop. There were no rales. The right upper extremity had mild weakness. A PICC line was in place in the left upper extremity. Her electrocardiogram showed sinus rhythm with a normal EKG pattern. Review of her telemetry tracings show that yesterday morning (7:36 AM) the patient had a brief period of sinus bradycardia followed by a 3-second pause. No such event has happened during almost 5 days of telemetry monitoring and since yesterday morning until now. Impression:?? Early sick sinus syndrome. Status post craniotomy for an abscess following surgery for hemangioma. Chronic obesity. I have discussed her case with her primary care physician as well as her surgeon. The patient will be monitored for another 24 hours on telemetry and if her rhythm remains stable will be allowed to return home to be seen by an ophthalmic surgical assistant. Past Patient History - Tetanus Immunizations Tetanus Immunization: Unknown - Past Medical History & Family History Past Medical History?: Yes Past Family History: Reviewed and not pertinent - Past Social History Smoking Status: Current Some Days Smoker - CARDIAC Hx Cardiac Disorders: No - PULMONARY Hx Respiratory Disorders: No - NEUROLOGICAL Hx Neurological Disorder: Yes Other/Comment: Brain tumor removed. - HEENT Hx HEENT Problems: No - RENAL Hx Chronic Kidney Disease: No - ENDOCRINE/METABOLIC Hx Endocrine Disorders: No - HEMATOLOGICAL/ONCOLOGICAL Hx Blood Disorders: No Hx AIDS: No Hx Human Immunodeficiency Virus (HIV): No - INTEGUMENTARY Hx Dermatological Problems: No - MUSCULOSKELETAL/RHEUMATOLOGICAL Hx Arthritis: Yes - GASTROINTESTINAL Hx Gastrointestinal Disorders: No - GENITOURINARY/GYNECOLOGICAL Hx Genitourinary Disorders: No - PSYCHIATRIC Hx Depression: No - SURGICAL HISTORY Hx Surgeries: Yes Hx Joint Replacement: Yes (R knee (2018), R hip (2016)) Other/Comment: head Sx (12/11/18) - ANESTHESIA Hx Anesthesia: Yes Hx Anesthesia Reactions: No Hx Malignant Hyperthermia: No Has any member of the family had a problem w/ anesthesia?: No Meds Home Medications: Home Medication List Medication Instructions Recorded Confirmed Type Cefepime 1gm in NS 100ml [Maxipime 1 gm IVPB Q12 #42 bag 01/28/19 Rx 1gm] Vancomycin HCl in Dextrose 5 % 1 gm IV Q12 #42 plast..bag 01/28/19 Rx [Vancomycin-D5w 1 Gram/100 ml] Allergies/Adverse Reactions: Allergies Allergy/AdvReac Type Severity Reaction Status Date / Time No Known Allergies Allergy Verified 01/22/19 20:32 - Medications Medications: Current Medications Acetaminophen (Tylenol 325mg Tab) 650 mg PO Q4 PRN PRN Reason: Fever >100.4 F Acetaminophen (Tylenol 325mg Tab) 650 mg PO Q6 PRN PRN Reason: Pain, Mild (1-3) Last Admin: 01/29/19 15:01 Dose: 650 mg Docusate Sodium (Colace) 100 mg PO BID [facility] Last Admin: 01/30/19 08:38 Dose: Not Given Gabapentin (Neurontin) 300 mg PO DAILY [facility] Last Admin: 01/30/19 08:37 Dose: 300 mg Home Med (Brexpiprazole [Rexulti]) 1 mg PO DAILY [facility] Last Admin: 01/30/19 08:37 Dose: 1 mg Home Med (Bupropion Hcl [Wellbutrin Xl]) 300 mg PO DAILY [facility] Last Admin: 01/30/19 08:37 Dose: 300 mg Lactated Ringer's (Lactated Ringer's) 1,000 mls @ 40 mls/hr IV .Q24H [facility] Last Admin: 01/29/19 10:38 Dose: 40 mls/hr Vancomycin HCl 1 gm/ Sodium (Chloride) 250 mls @ 166.667 mls/hr IVPB Q12H [facility]; Protocol Last Admin: 01/29/19 22:27 Dose: 166.667 mls/hr Cefepime HCl 1 gm/ Sodium (Chloride) 100 mls @ 100 mls/hr IVPB Q12 [facility]; Protocol Last Admin: 01/30/19 08:36 Dose: 100 mls/hr Lactobacillus Acidophilus (Bacid Acidophilus) 1 cap PO BID [facility] Last Admin: 01/30/19 08:36 Dose: 1 cap Levetiracetam (Keppra) 500 mg PO BID [facility] Last Admin: 01/30/19 08:37 Dose: 500 mg Loperamide HCl (Imodium) 2 mg PO Q6 PRN PRN Reason: Diarrhea Last Admin: 01/28/19 09:18 Dose: 2 mg Ondansetron HCl (Zofran Inj) 4 mg IVP Q4 PRN PRN Reason: Nausea/Vomiting Sertraline HCl (Zoloft) 100 mg PO DAILY [facility] Last Admin: 01/30/19 08:36 Dose: 100 mg Results - Vital Signs Recent Vital Signs: Last Vital Signs Temp 98.4 F 01/30/19 08:40 Pulse 83 01/30/19 08:40 Resp 20 01/30/19 08:40 BP 142/85 01/30/19 08:40 Pulse Ox 94 L 01/30/19 08:40 - Labs Result Diagrams: 01/27/19 05:15 01/27/19 05:15
[2019-01-30] MEDS: Lactated Ringer's 1,000 ML IV SCH (12:11)
[2019-01-31 04:28] VITALS: TEMP 98.4
[2019-01-31] MEDS: Cefepime 1 GM in Sodium Chloride 0.9% 100 ML IVPB SCH (08:17)
[2019-01-31] MEDS: BUPROPION HCL 300 MG PO SCH (08:17)
[2019-01-31] MEDS: BREXPIPRAZOLE 1 MG PO SCH (08:17)
[2019-01-31] MEDS: Lactobacillus Acidophilus 500 MU Cap PO SCH (08:20)
[2019-01-31 08:51] VITALS: BP 156/90; PULSE 80; RESP 20; O2SAT 94
--- NOTE | 2019-01-31 12:35 | CP.PCM.PN ---
Subjective - Date & Time of Evaluation Date of Evaluation: 01/31/19 Time of Evaluation: 11:30 - Subjective Subjective: The patient has remained symptom-free overnight and does not report any lightheaded spells. Telemetry shows steady sinus rhythm at physiological rates. No sinus pauses or AV conduction abnormalities were detected. I have discussed her case with her primary care physician in [place]. He agrees with my plan of managing her with an EP evaluation as an outpatient. 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 The patient is being sent home on her present medications ordered by the surgeons. Objective - Vital Signs/Intake and Output Vital Signs (last 24 hours): Temp Pulse Resp BP Pulse Ox 98.4 F 80 20 156/90 H 94 L 01/31/19 08:49 01/31/19 09:00 01/31/19 08:49 01/31/19 08:49 01/31/19 08:49 - Medications Medications: Current Medications Acetaminophen (Tylenol 325mg Tab) 650 mg PO Q4 PRN PRN Reason: Fever >100.4 F Acetaminophen (Tylenol 325mg Tab) 650 mg PO Q6 PRN PRN Reason: Pain, Mild (1-3) Last Admin: 01/29/19 15:01 Dose: 650 mg Docusate Sodium (Colace) 100 mg PO BID [facility] Last Admin: 01/31/19 08:17 Dose: Not Given Gabapentin (Neurontin) 300 mg PO DAILY [facility] Last Admin: 01/31/19 08:18 Dose: 300 mg Home Med (Brexpiprazole [Rexulti]) 1 mg PO DAILY [facility] Last Admin: 01/31/19 08:17 Dose: 1 mg Home Med (Bupropion Hcl [Wellbutrin Xl]) 300 mg PO DAILY [facility] Last Admin: 01/31/19 08:17 Dose: 300 mg Lactated Ringer's (Lactated Ringer's) 1,000 mls @ 40 mls/hr IV .Q24H [facility] Last Admin: 01/30/19 12:11 Dose: 40 mls/hr Vancomycin HCl 1 gm/ Sodium (Chloride) 250 mls @ 166.667 mls/hr IVPB Q12H [facility]; Protocol Last Admin: 01/31/19 09:14 Dose: 166.667 mls/hr Cefepime HCl 1 gm/ Sodium (Chloride) 100 mls @ 100 mls/hr IVPB Q12 [facility]; Protocol Last Admin: 01/31/19 08:17 Dose: 100 mls/hr Lactobacillus Acidophilus (Bacid Acidophilus) 1 cap PO BID [facility] Last Admin: 01/31/19 08:20 Dose: 1 cap Levetiracetam (Keppra) 500 mg PO BID [facility] Last Admin: 01/31/19 08:18 Dose: 500 mg Loperamide HCl (Imodium) 2 mg PO Q6 PRN PRN Reason: Diarrhea Last Admin: 01/30/19 16:27 Dose: 2 mg Ondansetron HCl (Zofran Inj) 4 mg IVP Q4 PRN PRN Reason: Nausea/Vomiting Sertraline HCl (Zoloft) 100 mg PO DAILY [facility] Last Admin: 01/31/19 08:18 Dose: 100 mg - Labs Labs: 01/27/19 05:15 01/27/19 05:15 PT 11.7 Seconds (9.8-13.1) 01/22/19 21:41 INR 1.0 01/22/19 21:41 APTT 32.4 Seconds (25.6-37.1) 01/22/19 21:41
--- NOTE | 2019-01-31 12:43 | CP.PCM.PN ---
Subjective - Date & Time of Evaluation Date of Evaluation: 01/31/19 Time of Evaluation: 09:00 - Subjective Subjective: seen on rounds patient examined chart reviewed orders signed Objective - Vital Signs/Intake and Output Vital Signs (last 24 hours): Temp Pulse Resp BP Pulse Ox 98.4 F 80 20 156/90 H 94 L 01/31/19 08:49 01/31/19 09:00 01/31/19 08:49 01/31/19 08:49 01/31/19 08:49 - Medications Medications: Current Medications Acetaminophen (Tylenol 325mg Tab) 650 mg PO Q4 PRN PRN Reason: Fever >100.4 F Acetaminophen (Tylenol 325mg Tab) 650 mg PO Q6 PRN PRN Reason: Pain, Mild (1-3) Last Admin: 01/29/19 15:01 Dose: 650 mg Docusate Sodium (Colace) 100 mg PO BID [facility] Last Admin: 01/31/19 08:17 Dose: Not Given Gabapentin (Neurontin) 300 mg PO DAILY [facility] Last Admin: 01/31/19 08:18 Dose: 300 mg Home Med (Brexpiprazole [Rexulti]) 1 mg PO DAILY [facility] Last Admin: 01/31/19 08:17 Dose: 1 mg Home Med (Bupropion Hcl [Wellbutrin Xl]) 300 mg PO DAILY [facility] Last Admin: 01/31/19 08:17 Dose: 300 mg Lactated Ringer's (Lactated Ringer's) 1,000 mls @ 40 mls/hr IV .Q24H [facility] Last Admin: 01/30/19 12:11 Dose: 40 mls/hr Vancomycin HCl 1 gm/ Sodium (Chloride) 250 mls @ 166.667 mls/hr IVPB Q12H [facility]; Protocol Last Admin: 01/31/19 09:14 Dose: 166.667 mls/hr Cefepime HCl 1 gm/ Sodium (Chloride) 100 mls @ 100 mls/hr IVPB Q12 [facility]; Protocol Last Admin: 01/31/19 08:17 Dose: 100 mls/hr Lactobacillus Acidophilus (Bacid Acidophilus) 1 cap PO BID [facility] Last Admin: 01/31/19 08:20 Dose: 1 cap Levetiracetam (Keppra) 500 mg PO BID [facility] Last Admin: 01/31/19 08:18 Dose: 500 mg Loperamide HCl (Imodium) 2 mg PO Q6 PRN PRN Reason: Diarrhea Last Admin: 01/30/19 16:27 Dose: 2 mg Ondansetron HCl (Zofran Inj) 4 mg IVP Q4 PRN PRN Reason: Nausea/Vomiting Sertraline HCl (Zoloft) 100 mg PO DAILY [facility] Last Admin: 01/31/19 08:18 Dose: 100 mg - Labs Labs: 01/27/19 05:15 01/27/19 05:15 PT 11.7 Seconds (9.8-13.1) 01/22/19 21:41 INR 1.0 01/22/19 21:41 APTT 32.4 Seconds (25.6-37.1) 01/22/19 21:41 Assessment and Plan (1) Brain hemangioma Status: Acute (2) Infected craniotomy plate Status: Acute (3) H/O craniotomy Status: Acute (4) H/O craniotomy Status: Acute (5) Infection of craniotomy plate Status: Acute (6) Post-operative wound abscess Status: Acute
--- NOTE | 2019-02-01 12:47 | PQF ---
PROVIDER RESPONSE TEXT: Patients BMI is 48.3. Per guidelines, BMI > 40 is clinically obese. Given this information, the patie nt's diagnosis would be obesity. REVIEWER QUERY TEXT: Documentation Clarification Your help is requested in clarifying the following clinical documentation, if you can please further specify in the medical record and discharge summary. Please clarify if there is an associated diagnosis or not to go along with the BMI. If YES Please doc ument the BMI along with the Diagnosis. The EMR has the patient listed as 5'6", weight of 299 pounds with a BMI of 48.3. [employer] consult :Obesity III >40 The patient's Clinical Indicators include: The EMR has the patient listed as 5'6", weight of 299 pounds with a BMI of 48.3. [employer]er consult :Obesity III >40 Query created by: Gwendolyn Lawrence on 01/29/2019 6:48 AM Electronically signed by: Hussein Keys APN 02/01/2019 12:44 PM
== END 2019-01-31 12:55 | disposition home or self-care (01) | DRG 856 ==
LOC: H.ER 19:54 → H.ERHOLD 21:17 → H.MEDSURG1 23:31 → H.ICU/CCU 01-25 14:47 → H.TEL 01-26 14:54
PROVIDERS: ADMIT Family Medicine; ATTEND Family Medicine
PROC: 00NC0ZZ Release Cerebellum, Open Approach (ICD-10-PCS; 2019-01-25)
PROC: 009400Z Drainage of Intracranial Subdural Space with Drainage Device, Open Approach (ICD-10-PCS; principal; 2019-01-25 12:15)
PROC: 02HV33Z Insertion of Infusion Device into Superior Vena Cava, Percutaneous Approach (ICD-10-PCS; 2019-01-29)
PROC: B518ZZA Fluoroscopy of Superior Vena Cava, Guidance (ICD-10-PCS; 2019-01-29)
PROC: 3E04329 Introduction of Other Anti-infective into Central Vein, Percutaneous Approach (ICD-10-PCS; 2019-01-29)
DX: T81.42XA Infection following a procedure, deep incisional surgical site, initial encounter (principal); G06.0 Intracranial abscess and granuloma; G06.2 Extradural and subdural abscess, unspecified; L02.811 Cutaneous abscess of head [any part, except face]; Z68.42 Body mass index [BMI] 45.0-49.9, adult; B96.20 Unspecified Escherichia coli [E. coli] as the cause of diseases classified elsewhere; B95.7 Other staphylococcus as the cause of diseases classified elsewhere; R00.1 Bradycardia, unspecified; Y83.8 Other surgical procedures as the cause of abnormal reaction of the patient, or of later complication, without mention of misadventure at the time of the procedure; Z86.011 Personal history of benign neoplasm of the brain; E66.9 Obesity, unspecified; G62.9 Polyneuropathy, unspecified; M19.90 Unspecified osteoarthritis, unspecified site; F17.210 Nicotine dependence, cigarettes, uncomplicated; Z96.641 Presence of right artificial hip joint; Z96.651 Presence of right artificial knee joint; Y92.9 Unspecified place or not applicable